=== PATIENT | female | born 1985 | race Caucasian/White ===

== ENCOUNTER 2016-03-25 12:16 | Day surgery (SDC) | payer OTHER ==
[2016-03-24 09:51] VITALS: BMI 43.0
[~2016-03-25] VITALS: Ht 152.4 cm; Wt 103.0 kg
[2016-03-25] VITALS (18 sets, daily range): BP systolic 84–126; BP diastolic 47–83; PULSE 74–98; RESP 14–25; Ht 152.4 cm; Wt 103.0 kg
[~2016-03-25 12:16] MED LIST: CEFAZOLIN 1 GM INJ ONE; GLYCOPYRROLATE 0.4 MG INJ ONE; IBUP800T25 PO; NEOSTIGMINE 3 MG/3 ML SYRINGE ONE; PRENAT PO; PROPOFOL 200 MG INJ ONE; ROCURONIUM 50 MG INJ ONE; SUCCINYLCHOLINE CHLORIDE 100 MG/5 ML SYG IV ONE
[2016-03-25] MEDS ORDERED: OMEP20CA16 PO (13:11)
[2016-03-25] MEDS ORDERED: NORG1TAB15 PO (13:13)
[2016-03-25] MEDS ORDERED: LACTATED RINGER'S 1,000 ML IV* SCH (13:30)
[2016-03-25] MEDS ORDERED: CEFAZOLIN 2 GM/50 ML (PMX) 50 ML IVPB SCH (13:30)
[2016-03-25 13:31] LABS: BASOPHIL # 0.2 10^3/ul (0.0-0.1); BASOPHILS % 2.4 % (0.0-2.0); EOSINOPHILS # 0.4 10^3/ul (0.0-0.5); EOSINOPHILS % 4.5 % (0.0-7.0); HEMATOCRIT 36.2 % (37.0-47.0); LYMPHOCYTES # 3.4 10^3/ul (0.8-2.9); LYMPHOCYTES % 35.2 % (15.0-51.0); MEAN CORPUSCULAR HEMOGLOBIN 29.2 pg (29.0-33.0); MEAN CORPUSCULAR HGB CONC 33.1 g/dl (32.0-37.0); MEAN CORPUSCULAR VOLUME 88.2 fl (82.0-101.0); MEAN PLATELET VOLUME 9.5 fl (7.4-10.4); MONOCYTE # 0.3 10^3/ul (0.3-0.9); MONOCYTES % 3.3 % (0.0-11.0); NEUTROPHIL # 5.3 10^3/ul (1.6-7.5); NEUTROPHILS % 54.6 % (39.0-77.0); PLATELET COUNT 217 10^3/UL (140-440); RED BLOOD COUNT 4.11 10^6/ul (4.20-5.40); RED CELL DISTRIBUTION WIDTH 13.4 % (11.5-14.5); UNCORRECTED WBC 9.7 10^3/ul (4.8-10.8); WHITE BLOOD COUNT 9.7 10^3/ul (4.8-10.8)
[2016-03-25 13:37] LABS: SUSPECT 1
[2016-03-25 13:38] LABS: CONDITION 1; LH ANALYZER COMMENTS 1
[2016-03-25 13:40] LABS: INR 0.91; PROTIME 12.2 Sec (12.2-14.2)
[2016-03-25 13:52] LABS: CALCIUM 9.9 mg/dl (8.4-10.2); CREATININE 0.62 mg/dl (0.44-1.00); POTASSIUM 3.9 mmol/L (3.5-5.1)
[2016-03-25 13:59] LABS: PARTIAL THROMBOPLASTIN TIME 23.9 Sec (25.0-35.0)
[2016-03-25 14:26] LABS: PLATELETS CLUMPS FEW
[2016-03-25] MEDS ORDERED: BUPIVACAINE 0.5% (SDV) 30 ML INJ ONE (17:05)
[2016-03-25] MEDS ORDERED: FENTAnyl 50 MCG/ML VIAL ONE (17:20)
[2016-03-25] MEDS ORDERED: DIPHENHYDRAMINE 50 MG INJ IV PRN (18:00)
[2016-03-25] MEDS ORDERED: HYDROmorphONE (0.2 MG/ML) 10ML SYG IV PRN ×3 (18:00)
[2016-03-25] MEDS ORDERED: ONDANSETRON 4 MG INJ IV PRN (18:00)
[2016-03-25] MEDS ORDERED: MEPERIDINE 25 MG INJ IV PRN (18:00)
[2016-03-25] MEDS ORDERED: METOCLOPRAMIDE 10 MG INJ IV PRN (18:00)
[2016-03-25] MEDS ORDERED: FENTAnyl 50 MCG/ML VIAL IV PRN (18:00)
[2016-03-25] MEDS ORDERED: HYDROCODONE/APAP (5/325) TAB PO PRN (19:00)
[2016-03-25] MEDS: FENTAnyl 50 MCG/ML VIAL IV PRN ×2 (19:09→19:42)
--- NOTE | 2016-03-26 18:45 | OPR ---
DATE OF OPERATION: 03/25/2016 SURGEON: Dr. Nima Miranda. ANESTHESIA: General. PREOPERATIVE DIAGNOSES: 1. Right hand mass at the thenar eminence. 2. Right hand mass at the base of the ring finger. 3. Right hand mass at the base of right middle finger. 4. Right wrist dorsal ganglion. 5. Right wrist mass at the flexor crease. POSTOPERATIVE DIAGNOSIS: 1. Right hand mass at the thenar eminence. 2. Right hand mass at the base of the ring finger. 3. Right hand mass at the base of right middle finger. 4. Right wrist dorsal ganglion. 5. Flexor tenosynovitis of the right wrist. PROCEDURE PERFORMED: 1. Excision of the deep mass from right thenar eminence measuring 5 mm x 5 mm. 2. 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 3. Excision of the deep mass, retinacular cyst from right middle finger at the level of the A2 pulle y measuring 8 mm x 8 mm. 4. Excision of right wrist dorsal ganglion. 5. Flexor tenosynovectomy at the carpal tunnel on the right wrist. 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 INDICATIONS FOR PROCEDURE: This is a 30-year-old female who was seen in clinic and diagnosed with m ultiple masses throughout the right hand. They are painful and she elected to proceed with operativ e intervention, understanding the risks and benefits. DESCRIPTION OF PROCEDURE: The patient was seen in the preoperative area and all further questions w ere answered. Again, she gave informed consent, understands the risks and benefits. She was taken to the operative suite and placed in supine position. She was placed under general anesthesia, and tourniquet placed in the right upper extremity. Ancef 2 grams was administered and right upper extr emity was prepped with ChloraPrep stick and draped in the usual sterile fashion. Esmarch bandage wa s used to exsanguinate the extremity and tourniquet inflated to 250 mmHg. Attention was first turne d to the dorsal wrist and a transverse incision measuring approximately 3 cm was utilized with sharp dissection carried down through skin and subcutaneous tissue. Scissor dissection revealed the exte nsor retinaculum and the sheath overlying the EPL tendon was incised and the EPL tendon was retracte d radially. The second and fourth dorsal compartments were retracted and the dorsal wrist capsule w as identified. A transverse ligament sparing type incision was made in the dorsal wrist capsule and the scapholunate interval was visualized. There was a dorsal ganglion present there and this was e xcised and debrided down to the level of the scapholunate ligament. Bovie electrocautery was used t o cauterize the scapholunate ligament. Wound was copiously irrigated and skin closed with 4-0 nylon . Attention was then turned to the volar aspect of the right wrist and a longitudinal incision was made over the area of mass that the patient identified. Sharp dissection was carried down through s kin and subcutaneous tissue. A deeper dissection revealed extensive tenosynovitis of the flexor ten dons and the incision was then extended past the wrist with a zigzag type incision. Each individual tendon was isolated along with the median nerve and the entirety of the tenosynovium which was hype rtrophic was excised. There was also significant adhesions between each of the tendons from the ten osynovitis. After excision, the tendon glided much more smoothly. Wound was copiously irrigated an d skin closed with 4-0 nylon. Attention was then turned to the right thenar eminence and a small ma ss was palpated. An incision was made through skin and subcutaneous tissue and scissor dissection w as used to identify the mass which was adherent to the undersurface of the deep dermis. Due to this , I decided to ellipse out the entirety of this mass and sent it for specimen. The wound was copiou sly irrigated and skin closed with 4-0 nylon. Attention was then turned to the right ring finger an d oblique type incision was utilized and sharp dissection carried down through skin, subcutaneous ti ssue. Scissor dissection spread over the flexor sheath and a retinacular cyst was identified. A po rtion of the A2 hakeem was excised and the cyst was removed. Attention was then turned to the right middle finger and an oblique incision centered over the mass was utilized proximal to the MB crease . Sharp dissection was carried down through skin and subcutaneous tissue. Scissor dissection was u sed to spread over the flexor sheath and the retinacular cyst was directly visualized. A portion of the A2 hakeem was excised and the cyst itself was also excised. Both wounds were copiously irrigat ed and skin closed with 4-0 nylon. Xeroform was placed over the wounds followed by sterile gauze, W ebril and a short arm splint. Tourniquet was deflated after 53 minutes and the patient was awakened from anesthesia. She was taken to the postoperative suite in stable condition, tolerated procedure well without complications. SPECIMEN: 1. Right wrist mass. 2. Right thenar mass. ESTIMATED BLOOD LOSS: 5 mL. COUNTS: Sponge, instrument and needle counts correct. TOURNIQUET TIME: 52 minutes. CONDITION ON DISCHARGE: Stable. Dictated By: NIMA HARRINGTON/CRISTOFER Conf#: [id number] DID#: [id number]
== END 2016-03-25 20:55 | disposition home or self-care (01) ==
LOC: SDS 12:16
PROVIDERS: ATTEND Orthopaedic Surgery Hand Surgery
DX: M67.441 Ganglion, right hand (principal); M67.431 Ganglion, right wrist; M65.88 Other synovitis and tenosynovitis, other site; E66.01 Morbid (severe) obesity due to excess calories; Z68.41 Body mass index [BMI] 40.0-44.9, adult
CPT/HCPCS: 25111; 25115; 26115; 26160; 80048; 84703; 85025; 85610; 85730; J0330; J0690; J2405; J2710; J3010; Z7512; Z7610; 88304; 88307

== ENCOUNTER 2016-10-02 02:21 | Outpatient (CLI) | payer OTHER ==
[~2016-10-02] VITALS: Ht 153.7 cm; Wt 106.4 kg
[~2016-10-02 02:21] MED LIST changes: -CEFAZOLIN 1 GM INJ ONE; -GLYCOPYRROLATE 0.4 MG INJ ONE; -IBUP800T25 PO; -NEOSTIGMINE 3 MG/3 ML SYRINGE ONE; +NORG1TAB15 PO; +OMEP20CA16 PO; -PRENAT PO; -PROPOFOL 200 MG INJ ONE; -ROCURONIUM 50 MG INJ ONE; -SUCCINYLCHOLINE CHLORIDE 100 MG/5 ML SYG IV ONE
[2016-10-02] MEDS ORDERED: NITR-58 PO (02:34)
[2016-10-02] MEDS ORDERED: PNV1TABL12 PO (02:34)
[2016-10-02] MEDS ORDERED: BISA-57 PO (02:34)
[2016-10-02 03:53] VITALS: Ht 153.7 cm; Wt 106.4 kg
[2016-10-02 03:54] VITALS: BP 132/72; PULSE 106; RESP 18
[2016-10-02] MEDS ORDERED: TERBUTALINE 1 MG/ML INJ SC ONE (04:00)
--- NOTE | 2016-10-02 04:42 | RADRPT ---
PROCEDURE: Obstetrical ultrasound, limited. CLINICAL INDICATION: Pelvic pain. TECHNIQUE: Multiple sonographic images of the pelvis were obtained using transabdominal technique . Images were obtained with cid scale and color Doppler. Endovaginal evaluation of the cervix was also performed. The images were reviewed on a PACS workstation. COMPARISON: No prior studies are available for comparison. FINDINGS: There is a single living intrauterine gestation with the fetus in a vertex presentation. hear t tones of 168 beats per minute are identified. The placenta is bilobed in location, grade 0. Ther e is normal amniotic fluid volume. The cervix is closed measuring 5.6 cm. There is no evidence of placenta previa or abruption. Measurements were made in order to determine age. The results are as follows: BPD =5.16 cm HC =19.14 cm AC =17.48 cm FL =3.69 cm. Estimated gestational age of approximately 21 weeks and 6 days. The estimated date of delivery is 02/06/2017. The EFW = 469 +/- 70 grams. Estimated weight percentage equals 30.3%. Maternal findings: There is mild free fluid within the posterior cul-de-sac. IMPRESSION: Single viable intrauterine gestation of approximately 21 weeks and 6 days, with an ultrasound REN of 02/06/2017. Mild maternal pelvic free fluid. .Kamlesh Evans MD, Date Time Electronically viewed and signed by .Kamlesh Evans MD, on 10/02/2016 04:41 .T/
[2016-10-02] MEDS: LACTATED RINGER'S 1,000 ML IV* SCH ×2 (04:50→06:52)
[2016-10-02 05:48] LABS: ADD UMIC YES; UR ASCORBIC ACID 20 mg/dL (NEGATIVE); UR BACTERIA FEW /HPF (NONE SEEN); UR BILIRUBIN (Dip) NEGATIVE (NEGATIVE); UR BLOOD (Dip) NEGATIVE (NEGATIVE); UR CLARITY CLOUDY (CLEAR); UR COLOR YELLOW (YELLOW); UR GLUCOSE (Dip) NEGATIVE (NEGATIVE); UR KETONES (Dip) NEGATIVE (NEGATIVE); UR LEUKOCYTE ESTERASE (Dip) NEGATIVE Leu/ul (NEGATIVE); UR MUCUS FEW /HPF (NONE SEEN); UR NITRITE (Dip) NEGATIVE (NEGATIVE); UR RBC 14 /HPF (0-5); UR SPECIFIC GRAVITY (Dip) 1.018 (1.003-1.030); UR SQUAMOUS EPITHELIAL CELL FEW /HPF (FEW); UR TOTAL PROTEIN (Dip) 1+ mg/dl (NEGATIVE); UR UROBILINOGEN (Dip) NEGATIVE (NEGATIVE)
[2016-10-02] MEDS ORDERED: MAGNESIUM HYDROXIDE 30ML CUP PO ONE (06:30)
[2016-10-02] MEDS ORDERED: PANTOPRAZOLE 40 MG INJ IV ONE (06:30)
--- NOTE | 2016-10-02 09:37 | PN ---
Triage Information Date/Time Weeks of Gestation Patient is 2 para 0 at 22 weeks and 3 days of gestation : 2 Para: 0 Diabetes: none Hypertention: none Additional information Patient presents with history of constipation and some nausea and vomiting at home Patient reports of taking Dulcolax suppository and Fleet enema which have not helped her with constipation Patient is also taking Macrobid for urinary tract infection She presents today afebrile and stable Objective Vital Signs Date Time Temp Pulse Resp B/P Pulse Ox O2 Delivery O2 Flow Rate FiO2 10/02/16 03:54 98.1 106 18 132/72 Room Air Intake and Output 10/01/16 10/01/16 10/02/16 15:00 23:00 07:00 Intake Total 1000 ml Balance 1000 ml Heart Rate: 140's Heart Rate Comments heart rate tracing is reactive Results/Medications Results 24 hrs Laboratory Tests Test 10/02/16 02:25 Urine Color YELLOW Urine Clarity CLOUDY A Urine pH 6.0 Urine Specific [place] 1.018 Urine Ketones NEGATIVE Urine Nitrite NEGATIVE Urine Bilirubin NEGATIVE Urine Urobilinogen NEGATIVE Urine Leukocyte Esterase NEGATIVE Urine Microscopic RBC 14 H Urine Microscopic WBC 4 Urine Squamous Epithelial Cells FEW Urine Bacteria FEW A Urine Mucus FEW A Urine Hemoglobin NEGATIVE Urine Glucose NEGATIVE Urine Total Protein 1+ H Medications Current Medications Lactated Ringer's (Lr) 1,000 ml @ 125 mls/hr Q8H IV* Last administered on 10/02t 06:52; Admin Dose 125 MLS/HR; Start 10/02/16 at 04:00 Imaging Results PROCEDURE: Obstetrical ultrasound, limited. CLINICAL INDICATION: Pelvic pain. TECHNIQUE: Multiple sonographic images of the pelvis were obtained using transabdominal technique. Images were obtained with cid scale and color Doppler. Endovaginal evaluation of the cervix was also performed. The images were reviewed on a PACS workstation. COMPARISON: No prior studies are available for comparison. FINDINGS: There is a single living intrauterine gestation with the fetus in a vertex presentation. heart tones of 168 beats per minute are identified. The placenta is bilobed in location, grade 0. There is normal amniotic fluid volume. The cervix is closed measuring 5.6 cm. There is no evidence of placenta previa or abruption. Measurements were made in order to determine age. The results are as follows: BPD = 5.16 cm HC = 19.14 cm AC = 17.48 cm FL = 3.69 cm. Estimated gestational age of approximately 21 weeks and 6 days. The estimated date of delivery is 02/06/2017. The EFW = 469 +/- 70 grams. Estimated weight percentage equals 30.3%. Maternal findings: There is mild free fluid within the posterior cul-de-sac. IMPRESSION: Single viable intrauterine gestation of approximately 21 weeks and 6 days, with an ultrasound REN of 02/06/2017. Mild maternal pelvic free fluid. .Kamlesh Evans MD, MD Date Time Electronically viewed and signed by .Kamlesh Evans MD, MD on 10/02/2016 04:41 .T/ CC: PAUL CEE MD Assessment/Plan Patient is a 22 weeks and 3 days of gestation with constipation CBC and CMP-within normal limits Patient was counseled to increase p.o. hydration, she was further counseled to take high-fiber foods Prescription for Colace was given Patient instructed to follow-up with her own [facility] in 2-3 days JIAN CISNEROS MD Oct 02, 2016 09:37
[2016-10-02 10:26] LABS: BASOPHILS % 0.3 % (0.0-2.0); EOSINOPHILS % 0.1 % (0.0-7.0); HEMATOCRIT 28.5 % (37.0-47.0); HEMOGLOBIN 9.4 g/dl (12.0-16.0); LYMPHOCYTES # 1.8 10^3/ul (0.8-2.9); LYMPHOCYTES % 14.9 % (15.0-51.0); MEAN CORPUSCULAR HEMOGLOBIN 30.3 pg (29.0-33.0); MEAN CORPUSCULAR VOLUME 91.9 fl (82.0-101.0); MEAN PLATELET VOLUME 10.9 fl (7.4-10.4); MONOCYTE # 0.4 10^3/ul (0.3-0.9); NEUTROPHIL # 9.6 10^3/ul (1.6-7.5); NEUTROPHILS % 81.2 % (39.0-77.0); PLATELET COUNT 279 10^3/UL (140-415); RED CELL DISTRIBUTION WIDTH 13.7 % (11.5-14.5); WHITE BLOOD COUNT 11.8 10^3/ul (4.8-10.8)
[2016-10-02 10:43] LABS: ALBUMIN 3.5 g/dl (3.3-4.9); ALBUMIN/GLOBULIN RATIO 1.2; BILIRUBIN,INDIRECT 0.2 mg/dl (0-1.1); BILIRUBIN,TOTAL 0.2 mg/dl (0.2-1.3); CALCIUM 8.8 mg/dl (8.4-10.2); CREATININE 0.5 mg/dl (0.44-1.00); POTASSIUM 3.7 mmol/L (3.5-5.1); TOTAL PROTEIN 6.4 g/dl (6.1-8.1)
--- NOTE | 2016-10-02 12:13 | TRIAGE ---
OB Triage Datetime Report Generated by CPN: 10/02/2016 12:13 Datetime: 10/02/2016 11:50 Labor Evaluation Frequency: NONE Monitor Mode: External Pattern: Normal: <= 5 Contractions in 10 Minutes Resting Tone [place]: Relaxed Datetime: 10/02/2016 11:00 Labor Evaluation Frequency: NONE Monitor Mode: External Pattern: Normal: <= 5 Contractions in 10 Minutes Resting Tone [place]: Relaxed Datetime: 10/02/2016 10:00 Labor Evaluation Frequency: NONE Monitor Mode: External Pattern: Normal: <= 5 Contractions in 10 Minutes Resting Tone [place]: Relaxed Datetime: 10/02/2016 09:00 Labor Evaluation Frequency: NONE Monitor Mode: External Pattern: Normal: <= 5 Contractions in 10 Minutes Resting Tone [place]: Relaxed Datetime: 10/02/2016 08:41 Pain Assessment Pain Scale: 5 Pain Presence: Constant Pain Type: Burning Pain Location: Abdomen Datetime: 10/02/2016 08:01 Maternal Assessment Level of Consciousness: Fully Conscious Headache: Denies Blurred Vision: No Nausea/Vomiting: Hx of Nausea/Vomiting RUQ Epigastric Pain: Denies Facial Edema: 1+ Labor Evaluation Frequency: NONE Monitor Mode: External Pattern: Normal: <= 5 Contractions in 10 Minutes Resting Tone [place]: Relaxed Datetime: 10/02/2016 07:55 Monitor Mode: External Datetime: 10/02/2016 07:54 Monitor Mode: External Datetime: 10/02/2016 07:41 Pain Assessment Pain Scale: 5 Pain Presence: Constant Pain Type: Burning; Ache Pain Location: Abdomen Pain Assessment Comments: PT REPORTS PAIN HAS DECREASED AFTER IV, AND ADMINISTRATION OF PROTONIX A ND MOM Datetime: 10/02/2016 07:00 Labor Evaluation Frequency: None Pattern: Normal: <= 5 Contractions in 10 Minutes Resting Tone [place]: Relaxed Datetime: 10/02/2016 06:00 Labor Evaluation Frequency: None Pattern: Normal: <= 5 Contractions in 10 Minutes Resting Tone [place]: Relaxed Datetime: 10/02/2016 05:00 Labor Evaluation Frequency: None Pattern: Normal: <= 5 Contractions in 10 Minutes Datetime: 10/02/2016 04:44 Nausea/Vomiting: Present Datetime: 10/02/2016 04:41 Monitor Mode: External Datetime: 10/02/2016 04:00 Labor Evaluation Frequency: None Pattern: Normal: <= 5 Contractions in 10 Minutes Resting Tone [place]: Relaxed Datetime: 10/02/2016 02:49 Assessment Type: Triage Maternal Assessment Level of Consciousness: Fully Conscious DTR's/Clonus: DTRs 2+; No Clonus Headache: Denies Blurred Vision: No Respiratory Effort: Unlabored; Regular Rhythm; Equal Expansion Breath Sounds, Left: Clear and Equal Breath Sounds, Right: Clear and Equal Nausea/Vomiting: Denies RUQ Epigastric Pain: Denies Lower Extremities Edema: Bilateral Lower Extremities Degree: 1+ Upper Extremities Edema: None Degree: None Facial Edema: None Fall Risk Assessment History of Falling: (0) No Secondary Diagnosis: (0) No Ambulatory Aid: (0) Bedrest/Nurse Assist IV Therapy: (0) No Gait: (0) Normal/Bedrest/Immobile Mental Status: (0) Oriented to Own Ability Fall Score: 0 Fall Risk Score Definition: No Risk: No action required Pain Presence: Intermittent Pain Type: Burning; Sharp Pain Location: Abdomen Pain Relief Measures: Comfort Measures Pain Assessment Comments: Epigastric Datetime: 10/02/2016 02:45 Heart Rate FHR Baseline Rate: 165 Monitor Mode: Doppler Comments: FHT Datetime: 10/02/2016 02:35 Time of Arrival: 10/02/2016 02:15 EGA: 22.2 Arrived By: Wheelchair Arrived From: Home (Annotations: Data stored by CPN on behalf of user) Chief Complaint: Severe epigastric and abdominal pain with N/V Movement: Present Contractions: Denies/Absent Rupture of Membranes: Denies Vaginal Bleeding: None Vaginal Discharge: Denies Recent Sexual Intercouse: Denies Abdominal Trauma: Not Applicable Patient Complaints: Nausea; Vomiting; Epigastric Pain; Other Time Provider Notified: 10/02/2016 03:35 Provider Notified: Dr Wei Initial Plan: Doppler FHT, toco, UA, EFW, CL, IV hydration.
== END 2016-10-02 12:09 | disposition home or self-care (01) ==
LOC: L-D 02:21 → OBT 02:21
PROVIDERS: ATTEND Obstetrics & Gynecology
DX: O26.892 Other specified pregnancy related conditions, second trimester (principal); K59.00 Constipation, unspecified; O21.0 Mild hyperemesis gravidarum; O23.42 Unspecified infection of urinary tract in pregnancy, second trimester; Z3A.22 22 weeks gestation of pregnancy
CPT/HCPCS: 76815; 76817; 80053; 81001; 85025; C9113; J7120; Z7610; J3105

== ENCOUNTER 2016-12-04 01:21 | Outpatient (CLI) | payer OTHER ==
[~2016-12-04] VITALS: Ht 154.9 cm; Wt 109.2 kg
[~2016-12-04 01:21] MED LIST changes: +BISA-57 PO; +NITR-58 PO; +PNV1TABL12 PO
[2016-12-04 01:56] VITALS: Ht 154.9 cm; Wt 109.2 kg
[2016-12-04 01:58] VITALS: BP 119/65; PULSE 102; RESP 18
[2016-12-04 03:45] LABS: ADD UMIC YES; UR AMORPHOUS CRYSTAL FEW /HPF (NONE SEEN); UR ASCORBIC ACID 40 mg/dL (NEGATIVE); UR BILIRUBIN (Dip) NEGATIVE (NEGATIVE); UR BLOOD (Dip) NEGATIVE (NEGATIVE); UR CLARITY TURBID (CLEAR); UR COLOR YELLOW (YELLOW); UR GLUCOSE (Dip) NEGATIVE (NEGATIVE); UR KETONES (Dip) NEGATIVE (NEGATIVE); UR LEUKOCYTE ESTERASE (Dip) NEGATIVE Leu/ul (NEGATIVE); UR MUCUS MANY /HPF (NONE SEEN); UR NITRITE (Dip) NEGATIVE (NEGATIVE); UR RBC 1 /HPF (0-5); UR SPECIFIC GRAVITY (Dip) 1.019 (1.003-1.030); UR TOTAL PROTEIN (Dip) NEGATIVE (NEGATIVE); UR UROBILINOGEN (Dip) NEGATIVE (NEGATIVE)
--- NOTE | 2016-12-04 04:38 | RADRPT ---
PROCEDURE: Biophysical profile. CLINICAL INDICATION: Pelvic pain. TECHNIQUE: Multiple sonographic images of the pelvis were obtained with transabdominal technique. Endovaginal evaluation of the cervix was also performed. COMPARISON: 10/02/2016. FINDINGS: There is a single living intrauterine gestation with the fetus in a breech position with the head to the maternal right. The placenta is bilobed in location, grade 1. heart tones of 137 beats p er minute are identified. There is normal amniotic fluid volume with an DANIKA of 22.1 cm. The cervix is closed measuring 3.4 cm. breathing movements = 2 Gross body movements = 2 tone = 2 Qualitative AFV = 2 IMPRESSION: Biophysical profile 8 out of 8. .Kamlesh Evans MD, Date Time Electronically viewed and signed by .Kamlesh Evans MD, MD on 12/04/2016 04:37 .T/
--- NOTE | 2016-12-04 05:09 | PN ---
Triage Information Date/Time Reason for visit: Weeks of Gestation 31w 2d /Para Diabetes: gestational Diabetes management: diet controlled Additional information h/o uterine septum Objective Vital Signs Date Time Temp Pulse Resp B/P Pulse Ox O2 Delivery O2 Flow Rate FiO2 12/04/16 01:58 98.1 102 18 119/65 97 Room Air Heart Rate Comments reactive Contractions: None Results/Medications Results 24 hrs Laboratory Tests Test 12/04/16 02:57 Urine Color YELLOW Urine Clarity TURBID A Urine pH 7.0 Urine Specific [place] 1.019 Urine Ketones NEGATIVE Urine Nitrite NEGATIVE Urine Bilirubin NEGATIVE Urine Urobilinogen NEGATIVE Urine Leukocyte Esterase NEGATIVE Urine Microscopic RBC 1 Urine Microscopic WBC 0 Urine Amorphous Crystals FEW A Urine Mucus MANY A Urine Hemoglobin NEGATIVE Urine Glucose NEGATIVE Urine Total Protein NEGATIVE Membranes Rupture NEGATIVE Imaging Results BPP 8/8, DANIKA 22.1, CL 3.4cm Disposition: Discharge NATALIE GAITAN Dec 04, 2016 05:09
--- NOTE | 2016-12-04 05:58 | TRIAGE ---
OB Triage Datetime Report Generated by CPN: 12/04/2016 05:57 Datetime: 12/04/2016 04:49 Stage of : OB Triage Labor Evaluation Frequency: 0 Monitor Mode: External Resting Tone [place]: Relaxed Datetime: 12/04/2016 04:28 Stage of : OB Triage Labor Evaluation Frequency: 0 Monitor Mode: External Resting Tone [place]: Relaxed Heart Rate FHR Baseline Rate: 120 Monitor Mode: External US Variability: Moderate 6-25 bpm Accelerations: 15X15 Decelerations: None Category: Category I Datetime: 12/04/2016 03:38 Stage of : OB Triage Labor Evaluation Frequency: 0 Monitor Mode: External Resting Tone [place]: Relaxed Heart Rate FHR Baseline Rate: 120 Monitor Mode: External US Variability: Moderate 6-25 bpm Accelerations: 15X15 Decelerations: None Category: Category I Datetime: 12/04/2016 03:37 Stage of : OB Triage Datetime: 12/04/2016 03:12 Monitor Mode: External US Datetime: 12/04/2016 03:03 Monitor Mode: External Datetime: 12/04/2016 03:00 Monitor Mode: External US Datetime: 12/04/2016 02:50 Stage of : OB Triage Datetime: 12/04/2016 02:48 Stage of : OB Triage Datetime: 12/04/2016 02:28 Stage of : OB Triage Datetime: 12/04/2016 02:26 Stage of : OB Triage Datetime: 12/04/2016 02:04 Stage of : OB Triage Datetime: 12/04/2016 02:01 Stage of : OB Triage Labor Evaluation Frequency: X6 Monitor Mode: External Duration (sec)2399: 40-80 Quality: Mild Resting Tone [place]: Relaxed Heart Rate FHR Baseline Rate: 125 Monitor Mode: External US Variability: Moderate 6-25 bpm Accelerations: 15X15 Decelerations: None Category: Category I Datetime: 12/04/2016 01:43 Assessment Type: Triage Maternal Assessment Level of Consciousness: Fully Conscious DTR's/Clonus: DTRs 2+; No Clonus Headache: Denies Blurred Vision: No Respiratory Effort: Unlabored Breath Sounds, Left: Clear and Equal Breath Sounds, Right: Clear and Equal Nausea/Vomiting: Hx of Nausea/Vomiting RUQ Epigastric Pain: Denies Lower Extremities Edema: Bilateral Lower Extremities Degree: 1+ Upper Extremities Edema: None Degree: None Facial Edema: None Fall Risk Assessment History of Falling: (0) No Secondary Diagnosis: (15) Yes (Annotations: GDM DIET CONTROLLED) Ambulatory Aid: (0) Bedrest/Nurse Assist IV Therapy: (0) No Gait: (0) Normal/Bedrest/Immobile Mental Status: (0) Oriented to Own Ability Fall Score: 15 Fall Risk Score Definition: No Risk: No action required Datetime: 12/04/2016 01:39 Time of Arrival: 12/04/2016 01:12 EGA: 31.2 Arrived By: Wheelchair Arrived From: Home Chief Complaint: low abd pressure, leaking, dysuria, Movement: Present Contractions: Denies/Absent Rupture of Membranes: Unsure Vaginal Bleeding: None Vaginal Discharge: Denies Recent Sexual Intercouse: Yes Abdominal Trauma: Not Applicable Initial Plan: VS, EFM, UA, ROM+, CL, BPP/DANIKA Datetime: 12/04/2016 01:28 Monitor Mode: External Contraction Comments: APPLIED Monitor Mode: External US Comments: APPLIED Datetime: 10/02/2016 02:49 Fall Score: 0 Fall Risk Score Definition: No Risk: No action required Datetime: 10/02/2016 02:35 EGA: 22.2
== END 2016-12-04 05:05 | disposition home or self-care (01) ==
LOC: OBT 01:21 → L-D 01:22 → OBT 05:05
PROVIDERS: ATTEND Obstetrics & Gynecology
DX: O24.410 Gestational diabetes mellitus in pregnancy, diet controlled (principal); Z3A.31 31 weeks gestation of pregnancy
CPT/HCPCS: 76817; 76818; 81001; 84112; Z7500; G0463

== ENCOUNTER 2016-12-21 12:02 | Outpatient (CLI) | payer OTHER ==
[~2016-12-21] VITALS: Ht 154.9 cm; Wt 108.7 kg
--- NOTE | 2016-12-21 12:32 | RADRPT ---
PROCEDURE: US OB biophysical profile. CLINICAL INDICATION: decreased movements, GDM TECHNIQUE: Multiple sonographic images of the pelvis were obtained. The images were reviewed on a PACS workstation. COMPARISON: US PELVIS 12/04/2016 FINDINGS: There is a single viable intrauterine gestation. Cardiac activity is present with 140 beats per min [place]. There is a breech presentation. The placenta is bilobed, anterior/posterior. There is no evidence of placental abruption. There is a normal amount of amniotic fluid with an DANIKA = 16.7 cm. Biophysical profile: movement 2/2 tone 2/2. breathing 2/2 DANIKA 2/2 Total 10/12 RPTAT: AA . IMPRESSION: Normal biophysical profile. . .Raheem Friedman MD, Date Time Electronically viewed and signed by .Raheem Friedman MD, MD on 12/21/2016 12:31 .S/
[2016-12-21 13:06] VITALS: Ht 154.9 cm; Wt 108.7 kg
--- NOTE | 2016-12-21 15:35 | PN ---
Triage Information Date/Time Reason for visit: NST BPP Weeks of Gestation 33+ /Para 3/0 Diabetes: gestational Diabetes management: diet controlled Hypertention: none Objective Heart Rate: 140's Contractions: None Results/Medications Results 24 hrs Laboratory Tests Test 12/21/16 14:20 Membranes Rupture NEGATIVE Disposition: Discharge Assessment/Plan Precautions discussed.Follow up with provider BAMBI HUNT M.D. Dec 21, 2016 15:35
== END 2016-12-21 16:10 | disposition home or self-care (01) ==
LOC: L-D 12:02 → OBT 12:02
PROVIDERS: ATTEND Obstetrics & Gynecology
DX: O24.419 Gestational diabetes mellitus in pregnancy, unspecified control (principal); Z3A.33 33 weeks gestation of pregnancy
CPT/HCPCS: 76818; 84112; Z7500; G0463

== ENCOUNTER 2016-12-25 23:22 | Outpatient (CLI) | payer OTHER ==
[~2016-12-25] VITALS: Ht 154.9 cm; Wt 108.0 kg
[2016-12-26 00:27] VITALS: Ht 154.9 cm; Wt 108.0 kg
--- NOTE | 2016-12-26 01:57 | RADRPT ---
PROCEDURE: OB ultrasound for biophysical profile CLINICAL INDICATION: Pain. TECHNIQUE: Multiple sonographic images of the gravid uterus performed. The images were reviewed on a PACS workstation. COMPARISON: 12/21/2016 FINDINGS: A single live intrauterine is identified with heart rate of 150 bpm. Fet us is in a cephalic presentation. Placenta is bilobed with both anterior and posterior components. . Biophysical profile: breathing movement = 2/2 tone = 2/2 motion = 2/2 DANIKA = 2/2 DANIKA = 16.88 cm. Cervix is closed measuring 3.6 cm length. IMPRESSION: 1. Single live intrauterine gestation. 2. Biophysical profile = 8/8. 3. DANIKA = 16.88 cm. RPTAT: HMVK .Khurram Miranda MD, MD Date Time Electronically viewed and signed by .Khurram Miranda MD, MD on 12/26/2016 01:57 .K/
[2016-12-26 02:13] LABS: ADD UMIC YES; UR ASCORBIC ACID NEGATIVE (NEGATIVE); UR BACTERIA FEW /HPF (NONE SEEN); UR BILIRUBIN (Dip) NEGATIVE (NEGATIVE); UR BLOOD (Dip) NEGATIVE (NEGATIVE); UR BUDDING YEAST FEW /HPF (NONE SEEN); UR CLARITY CLOUDY (CLEAR); UR COLOR YELLOW (YELLOW); UR GLUCOSE (Dip) NEGATIVE (NEGATIVE); UR KETONES (Dip) NEGATIVE (NEGATIVE); UR LEUKOCYTE ESTERASE (Dip) NEGATIVE Leu/ul (NEGATIVE); UR NITRITE (Dip) NEGATIVE (NEGATIVE); UR RBC 1 /HPF (0-5); UR SPECIFIC GRAVITY (Dip) 1.016 (1.003-1.030); UR SQUAMOUS EPITHELIAL CELL FEW /HPF (FEW); UR TOTAL PROTEIN (Dip) NEGATIVE (NEGATIVE); UR UROBILINOGEN (Dip) NEGATIVE (NEGATIVE)
[2016-12-26] MEDS ORDERED: HYDROCODONE/APAP (5/325) TAB PO ONE (02:32)
[2016-12-26] MEDS ORDERED: CALC600T5 PO (02:55)
[2016-12-26] MEDS ORDERED: PYRI50TA80 PO (02:55)
[2016-12-26] MEDS ORDERED: ACET500C5 PO (02:55)
[2016-12-26] MEDS ORDERED: ASC500 PO (02:55)
[2016-12-26] MEDS ORDERED: PREN1TAB79 PO (02:55)
[2016-12-26] MEDS ORDERED: IRON1TAB78 PO (02:55)
[2016-12-26] MEDS ORDERED: FOLI-49 PO (02:55)
--- NOTE | 2016-12-26 06:30 | PN ---
Triage Information Date/Time December 26, 2016. Reason for visit: Abd/pelvic pain Weeks of Gestation 33w 4d /Para 3/0 Diabetes: none Hypertention: none Additional information Pt has had right lower quadrant pain for the last month. Tonight she came in as she was feeling pressure and feeling like she wanted to push to have the baby. She had a BM after arrival here but it did not relieve the feeling. That pressure has now gone. PMHx: none. PSHx: myomectomy.HSC. Hand surgery. All: lidocaine. Vicks Formula 44. Objective BP 124/74 T=98.5 Heart Rate: 130's Heart Rate Comments Accels to 160 bpm. No decels. Contractions: None Results/Medications Results 24 hrs Laboratory Tests Test 12/26/16 00:35 Urine Color YELLOW Urine Clarity CLOUDY A Urine pH 7.0 Urine Specific [place] 1.016 Urine Ketones NEGATIVE Urine Nitrite NEGATIVE Urine Bilirubin NEGATIVE Urine Urobilinogen NEGATIVE Urine Leukocyte Esterase NEGATIVE Urine Microscopic RBC 1 Urine Microscopic WBC 3 Urine Squamous Epithelial Cells FEW Urine Calcium Oxalate Crystals MANY A Urine Bacteria FEW A Urine Yeast (Budding) FEW A Urine Hemoglobin NEGATIVE Urine Glucose NEGATIVE Urine Total Protein NEGATIVE Medications [place] 5/325 x 1. Imaging Results BPP 8/8. DANIKA 16.88. Cervical length 3.6 cm, closed. VTX. Anterior/posterior bilobed placenta. Disposition: Discharge Assessment/Plan A: IUP at 33w 4d. Right lower quadrant pain, unclear etiology. Pelvic pressure, resolved. P: D/C home. After one [place] the pressure resolved and the pt felt better in that regard. Pt scheduled for C/S 02/03 due to the h/o myomectomy. Keep appt with Dr Coburn 12/28. PAUL CEE MD Dec 26, 2016 06:30
--- NOTE | 2016-12-26 06:37 | TRIAGE ---
OB Triage Datetime Report Generated by CPN: 12/26/2016 06:37 Datetime: 12/26/2016 06:17 Stage of : OB Triage Datetime: 12/26/2016 06:15 Stage of : OB Triage Labor Evaluation Frequency: NONE Monitor Mode: External Duration (sec)2399: NONE Resting Tone Dodson: Relaxed Heart Rate FHR Baseline Rate: 135 Monitor Mode: External US FHR Baseline Changes: No Baseline Change Variability: Moderate 6-25 bpm Accelerations: 15X15 Decelerations: None Category: Category I Datetime: 12/26/2016 05:30 Stage of : OB Triage Labor Evaluation Frequency: NONE Monitor Mode: External Duration (sec)2399: NONE Resting Tone Dodson: Relaxed Heart Rate FHR Baseline Rate: 135 Monitor Mode: External US FHR Baseline Changes: No Baseline Change Variability: Moderate 6-25 bpm Accelerations: 15X15 Decelerations: Variable Category: Category II Datetime: 12/26/2016 05:03 Pain Assessment Pain Scale: 3 Pain Presence: Constant Pain Location: Right Groin Pain Assessment Comments: PT STATES THAT THE PAIN ON HER BACK AND ABDOMEN WERE GONE BUT STILL FEEL ING 3/10 SHARP PAIN ON HER RIGHT GROIN Datetime: 12/26/2016 04:30 Stage of : OB Triage Labor Evaluation Frequency: NONE Monitor Mode: External Duration (sec)2399: NONE Resting Tone Dodson: Relaxed Heart Rate FHR Baseline Rate: 135 Monitor Mode: External US FHR Baseline Changes: No Baseline Change Variability: Moderate 6-25 bpm Accelerations: 15X15 Decelerations: None Category: Category I Datetime: 12/26/2016 03:50 Pain Assessment Pain Scale: 5 Pain Presence: Constant Pain Location: Abdomen; Back; Right Groin Pain Assessment Comments: PT STATES FEELING SLIGHT RELIEF FROM PAIN. Datetime: 12/26/2016 03:30 Stage of : OB Triage Labor Evaluation Frequency: NONE Monitor Mode: External Duration (sec)2399: NONE Resting Tone Dodson: Relaxed Contraction Comments: SOME IRRITABILITY NOTED Heart Rate FHR Baseline Rate: 135 Monitor Mode: External US FHR Baseline Changes: No Baseline Change Variability: Moderate 6-25 bpm Accelerations: 15X15 Decelerations: None Category: Category I Datetime: 12/26/2016 02:56 Stage of : OB Triage Pain Assessment Pain Scale: 9 Pain Presence: Constant Pain Type: Sharp Pain Location: Right Groin Pain Relief Measures: Pain Medication Given; Comfort Measures Datetime: 12/26/2016 02:40 Vaginal Exam Membrane Status: Intact Datetime: 12/26/2016 02:37 Stage of : OB Triage Labor Evaluation Frequency: IRRITABILITY Monitor Mode: External Pattern: Normal: <= 5 Contractions in 10 Minutes Resting Tone Dodson: Relaxed Heart Rate FHR Baseline Rate: 135 Monitor Mode: External US FHR Baseline Changes: No Baseline Change Variability: Moderate 6-25 bpm Accelerations: 15X15 Decelerations: None Category: Category I Datetime: 12/26/2016 02:30 Stage of : OB Triage Datetime: 12/26/2016 02:22 Monitor Mode: External US Datetime: 12/26/2016 02:01 Monitor Mode: External US Datetime: 12/26/2016 01:39 Monitor Mode: External US Datetime: 12/26/2016 01:05 Stage of : OB Triage Labor Evaluation Frequency: OCC Monitor Mode: External Duration (sec)2399: 40-50 Quality: Mild Pattern: Normal: <= 5 Contractions in 10 Minutes Resting Tone Dodson: Relaxed Contraction Comments: IRRITABILITY NOTED Heart Rate FHR Baseline Rate: 135 Monitor Mode: External US FHR Baseline Changes: No Baseline Change Variability: Moderate 6-25 bpm Accelerations: 15X15 Decelerations: None Category: Category II Datetime: 12/26/2016 01:00 Stage of : OB Triage Datetime: 12/26/2016 00:27 Stage of : OB Triage Datetime: 12/26/2016 00:01 Stage of : OB Triage Labor Evaluation Frequency: x2 Monitor Mode: External Duration (sec)2399: 30-40 Quality: Mild Pattern: Normal: <= 5 Contractions in 10 Minutes Resting Tone Dodson: Relaxed Heart Rate FHR Baseline Rate: 145 Monitor Mode: External US Decelerations: None Category: Category I Datetime: 12/26/2016 00:00 Stage of : OB Triage Time of Arrival: 12/25/2016 23:20 EGA: 33.2 Arrived By: Wheelchair Arrived From: Home Chief Complaint: PT STATES SHE HAS THE "URGE TO PUSH BABY OUT", LEFT LOWER PELVIC PAIN, BACK PAIN Movement: Present Contractions: Irregular Contractions: X2 Rupture of Membranes: Denies Vaginal Bleeding: None Vaginal Discharge: Denies Recent Sexual Intercouse: Denies Abdominal Trauma: Not Applicable Patient Complaints: Back Pain; Other Time Provider Notified: 12/26/2016 00:27 Provider Notified: DR. CEE Initial Plan: EFM, CALL OB, CVL, BPP, URINALYSIS Maternal Assessment Level of Consciousness: Fully Conscious DTR's/Clonus: DTRs 2+; No Clonus Headache: Denies Blurred Vision: No Respiratory Effort: Unlabored; Regular Rhythm; Equal Expansion Breath Sounds, Left: Clear and Equal Breath Sounds, Right: Clear and Equal Nausea/Vomiting: Denies RUQ Epigastric Pain: Denies Lower Extremities Edema: Bilateral Lower Extremities Upper Extremities Edema: None Degree: None Facial Edema: None Temperature Route: Oral Fall Risk Assessment History of Falling: (0) No Secondary Diagnosis: (0) No Ambulatory Aid: (0) Bedrest/Nurse Assist IV Therapy: (0) No Gait: (0) Normal/Bedrest/Immobile Mental Status: (0) Oriented to Own Ability Fall Score: 0 Fall Risk Score Definition: No Risk: No action required Pain Assessment Pain Scale: 8 Pain Presence: Constant Pain Type: Sharp; Pressure; Ache Pain Location: Abdomen; Back (Annotations: LEFT LOWER PELVIS) Pain Relief Measures: Comfort Measures Datetime: 12/25/2016 23:33 Contraction Comments: APPLIED Comments: APPLIED Datetime: 12/21/2016 15:42 EGA: 32.5 Time Provider Notified: 12/20/2016 13:55 Provider Notified: DR. ABUSLEME Datetime: 12/21/2016 12:37 Fall Score: 0 Fall Risk Score Definition: No Risk: No action required Datetime: 12/04/2016 05:05 EGA: 32.5 Datetime: 12/04/2016 01:43 Fall Score: 15 Fall Risk Score Definition: No Risk: No action required Datetime: 12/04/2016 01:39 EGA: 30.2 Datetime: 10/02/2016 02:49 Fall Score: 0 Fall Risk Score Definition: No Risk: No action required Datetime: 10/02/2016 02:35 EGA: 21.2
== END 2016-12-26 06:30 | disposition home or self-care (01) ==
LOC: OBT 23:22 → L-D 23:25 → OBT 12-26 06:30
PROVIDERS: ATTEND Obstetrics & Gynecology
DX: O26.893 Other specified pregnancy related conditions, third trimester (principal); R10.31 Right lower quadrant pain; R10.2 Pelvic and perineal pain; Z3A.33 33 weeks gestation of pregnancy
CPT/HCPCS: 76817; 76818; 81001; Z7500; Z7610; G0463

== ENCOUNTER 2017-01-15 01:51 | Outpatient (CLI) | payer OTHER ==
[~2017-01-15] VITALS: Ht 154.9 cm; Wt 108.8 kg
[~2017-01-15 01:51] MED LIST changes: +ACET500C5 PO; +ASC500 PO; -BISA-57 PO; +CALC600T5 PO; +FOLI-49 PO; +IRON1TAB78 PO; -NITR-58 PO; -NORG1TAB15 PO; -OMEP20CA16 PO; -PNV1TABL12 PO; +PREN1TAB79 PO; +PYRI50TA80 PO
[2017-01-15 02:47] VITALS: Ht 154.9 cm; Wt 108.8 kg
--- NOTE | 2017-01-15 03:13 | RADRPT ---
PROCEDURE: ULTRASOUND BIOPHYSICAL PROFILE CLINICAL INDICATION: 31-year-old female with decreased movement for viability. TECHNIQUE: Multiple sonographic images were obtained in order to perform a biophysical profile The images were reviewed on a PACS workstation. COMPARISON: Ultrasound biophysical profile December 26, 2016. FINDINGS: There is a single viable intrauterine gestation. There is a vertex presentation. Cardiac activity i s present at 166 beats per minute. The placenta is bilobed with anterior posterior component. The r esults of the biophysical profile are as follows: breathing movement = 2/2 Gross body movement = 2/2 tone = 2/2 Qualitative amniotic fluid volume = 2/2 Amniotic fluid index equals 13.6 cm. This yields a biophysical profile score of 8/8. IMPRESSION: Biophysical profile score is 8/8. .Sumanth Pinzon MD, Date Time Electronically viewed and signed by .Sumanth Pinzon MD, on 01/15/2017 03:12 .M/
--- NOTE | 2017-01-15 04:04 | TRIAGE ---
OB Triage Datetime Report Generated by CPN: 01/15/2017 04:04 Datetime: 01/15/2017 03:57 Stage of : OB Triage Datetime: 01/15/2017 03:52 Stage of : OB Triage Datetime: 01/15/2017 02:35 Time of Arrival: 01/15/2017 01:44 EGA: 36.2 Arrived By: Wheelchair Arrived From: Home Chief Complaint: DFM AND LOWER ABD PRESSURE Movement: Present Contractions: Occasional Rupture of Membranes: Denies Vaginal Bleeding: None Vaginal Discharge: Denies Recent Sexual Intercouse: Denies Abdominal Trauma: Not Applicable Patient Complaints: Other Initial Plan: EFM, CALL OB Datetime: 01/15/2017 02:20 Labor Evaluation Frequency: X3 Monitor Mode: External Pattern: Normal: <= 5 Contractions in 10 Minutes Heart Rate FHR Baseline Rate: 135 Monitor Mode: External US FHR Baseline Changes: No Baseline Change Variability: Moderate 6-25 bpm Accelerations: 15X15 Decelerations: None Datetime: 01/15/2017 02:00 Stage of : OB Triage Assessment Type: Triage Maternal Assessment Level of Consciousness: Fully Conscious Headache: Denies Blurred Vision: No Respiratory Effort: Unlabored; Regular Rhythm; Equal Expansion Nausea/Vomiting: Denies RUQ Epigastric Pain: Denies Facial Edema: None Fall Risk Assessment History of Falling: (0) No Secondary Diagnosis: (0) No Ambulatory Aid: (0) Bedrest/Nurse Assist IV Therapy: (0) No Gait: (0) Normal/Bedrest/Immobile Mental Status: (0) Oriented to Own Ability Fall Score: 0 Fall Risk Score Definition: No Risk: No action required Datetime: 12/26/2016 00:00 EGA: 33.2 Fall Score: 0 Fall Risk Score Definition: No Risk: No action required Datetime: 12/21/2016 15:42 EGA: 32.5 Datetime: 12/21/2016 12:37 Fall Score: 0 Fall Risk Score Definition: No Risk: No action required Datetime: 12/04/2016 05:05 EGA: 32.5 Datetime: 12/04/2016 01:43 Fall Score: 15 Fall Risk Score Definition: No Risk: No action required Datetime: 12/04/2016 01:39 EGA: 30.2 Datetime: 10/02/2016 02:49 Fall Score: 0 Fall Risk Score Definition: No Risk: No action required Datetime: 10/02/2016 02:35 EGA: 21.2
--- NOTE | 2017-01-15 18:18 | QN ---
Documentation Comment g3po iup 36 weelks dfm vss exam wnl us wnl a/p iup 36 weeks DFM resolved dc home KATERINA INGRAM MD Jan 15, 2017 18:18
== END 2017-01-15 04:03 | disposition home or self-care (01) ==
LOC: L-D 01:51 → OBT 01:51
PROVIDERS: ATTEND Obstetrics & Gynecology
DX: O36.8130 Decreased fetal movements, third trimester, not applicable or unspecified (principal); Z3A.36 36 weeks gestation of pregnancy
CPT/HCPCS: 76818; 81001; 81003; Z7500; G0463

== ENCOUNTER 2017-01-30 02:28 | Inpatient (IN) | payer OTHER ==
--- NOTE | 2017-01-29 23:46 | PREOPHP ---
DATE OF ADMISSION: 02/10/2017 HISTORY OF PRESENT ILLNESS: This is a 31-year-old female, 2, para 1, abortions 0. This pat ient has a history of having a previous myomectomy and she is due 02/2013 by ultrasound, 02/10 by pe rinatology, 02/08 by her dates, last period was 05/04/2016. We came up with a primary sect ion for 02/03/2017 due to history of myomectomy and also a history of uterine septum that was close to the fundus that was also treated. The patient had early evaluation of her for which e dates were pretty close February 08 or , so five days before her due date. We will be going her p rimary section. The patient had a gestational diabetes, diet controlled. She was prediabe tic in the first trimester and then she became with gestational diabetes with a large fetus, and she was also having a history of having new fibroids coming up. The patient became slightly anemic dur ing the . She is markedly obese with 238 pounds and she is only 5 feet 1 inch. The patien t stayed on this weight throughout her without gaining weight. The patient had no complic ations during the of -induced hypertension, only gestational diabetes that has be en controlled with diet. PAST MEDICAL HISTORY: Myomectomy. FAMILY HISTORY: Diabetes, hypertension, heart disease. ALLERGIES: 1. LIDOCAINE. 2. VICKS. PHYSICAL EXAMINATION: VITAL SIGNS: She is 5 feet 1 inch. Her blood pressure is 120/80, pulse is 80, respirations 16. HEAD AND NECK: Normal. CHEST: Clear. HEART: Normal sinus rhythm. LUNGS: Clear. BREASTS: Soft, nontender, no masses. ABDOMEN: Soft, nontender, no masses. Uterus is large with a large fetus. She had normal hea rt tones, no contractions. PELVIC: Normal pelvic exam with closed and long cervix. Presentation very high up in the pelvis, c ephalic presentation. EXTREMITIES: Normal with normal pulses with some edema and normal reflexes. With the diagnoses of term , previous myomectomy and septum lysis, she is undergoing a prim suad section. She has been advised of the possible risks and possible complications of the procedure with her alternatives and options. Written information was provided. She had no more que stions and agreed to go ahead with the procedure with full understanding and no more questions. Dictated By: ROM DUKE/CRISTOFER Conf#: [id number] DID#: [id number]
[~2017-01-30] VITALS: Ht 154.9 cm; Wt 109.9 kg
[~2017-01-30 02:28] MED LIST changes: -ACET500C5 PO
[2017-01-30 02:39] VITALS: BP 110/68; PULSE 102; RESP 18
[2017-01-30] MEDS ORDERED: AZIT500T2 PO (02:47)
[2017-01-30] MEDS ORDERED: LACTATED RINGER'S 1,000 ML IV SCH (03:33)
[2017-01-30] MEDS ORDERED: CEFAZOLIN 2 GM/50 ML (PMX) 50 ML IV SCH ×2 (04:00→09:00)
[2017-01-30] MEDS ORDERED: MISOPROSTOL 200 MCG TAB PR PRN ×2 (04:00→09:00)
[2017-01-30] MEDS ORDERED: METHYLERGONOVINE 0.2 MG INJ IM PRN ×2 (04:00→09:00)
[2017-01-30] MEDS ORDERED: CARBOPROST 250 MCG INJ IM PRN ×2 (04:00→09:00)
[2017-01-30] MEDS ORDERED: OXYTOCIN 30 UNITS/LR 500 ML IV PRN ×2 (04:00→09:00)
[2017-01-30] MEDS ORDERED: OXYTOCIN 30 UNITS/LR 500 ML IV SCH (04:00)
[2017-01-30 04:59] LABS: BASOPHILS % 0.5 % (0.0-2.0); EOSINOPHILS # 0.2 10^3/ul (0.0-0.5); EOSINOPHILS % 1.9 % (0.0-7.0); HEMATOCRIT 34.8 % (37.0-47.0); HEMOGLOBIN 11.9 g/dl (12.0-16.0); LYMPHOCYTES # 2.6 10^3/ul (0.8-2.9); MEAN CORPUSCULAR HEMOGLOBIN 31.7 pg (29.0-33.0); MEAN CORPUSCULAR HGB CONC 34.2 g/dl (32.0-37.0); MEAN CORPUSCULAR VOLUME 92.8 fl (82.0-101.0); MEAN PLATELET VOLUME 11.6 fl (7.4-10.4); MONOCYTE # 0.6 10^3/ul (0.3-0.9); MONOCYTES % 7.6 % (0.0-11.0); NEUTROPHIL # 4.3 10^3/ul (1.6-7.5); NEUTROPHILS % 55.6 % (39.0-77.0); PLATELET COUNT 249 10^3/UL (140-415); RED BLOOD COUNT 3.75 10^6/ul (4.20-5.40); RED CELL DISTRIBUTION WIDTH 14.1 % (11.5-14.5); WHITE BLOOD COUNT 7.7 10^3/ul (4.8-10.8)
[2017-01-30 05:16] LABS: ALBUMIN 3.3 g/dl (3.3-4.9); ALBUMIN/GLOBULIN RATIO 0.91; BILIRUBIN,INDIRECT 0.2 mg/dl (0-1.1); BILIRUBIN,TOTAL 0.2 mg/dl (0.2-1.3); CALCIUM 10.4 mg/dl (8.4-10.2); CREATININE 0.66 mg/dl (0.44-1.00); POTASSIUM 3.8 mmol/L (3.5-5.1); TOTAL PROTEIN 6.9 g/dl (6.1-8.1)
[2017-01-30 05:28] LABS: INR 0.85; PROTIME 11.6 Sec (12.2-14.2); PT RATIO 0.9
[2017-01-30] MEDS ORDERED: OXYTOCIN 30 UNITS/LR 500 ML BAG IV ONE (07:00)
[2017-01-30] MEDS ORDERED: ONDANSETRON 4 MG INJ ONE (08:38)
[2017-01-30] MEDS ORDERED: OXYTOCIN 10 UNIT INJ ONE (08:38)
[2017-01-30] MEDS ORDERED: PHENYLephrine (100 MCG/ML) 5ML SYG ONE ×2 (08:38→09:30)
[2017-01-30] MEDS ORDERED: morphine SULFATE/PF (10 MG/10 ML) INJ ONE (08:38)
[2017-01-30] MEDS: LACTATED RINGER'S 1,000 ML IV SCH ×3 (08:45→20:52)
--- NOTE | 2017-01-30 08:45 | QN ---
Documentation Comment Patient was schedule for a c/s on 02/03/17 due to a previous myomectomy. started in active labor this morning SROM with clear fluid. c/s was schedule emergently on 01/30/17 ROM SEAY MD Jan 30, 2017 08:45
--- NOTE | 2017-01-30 08:53 | SIPON ---
Date/Time of Note Date/Time of Note DATE: 01/30/17 TIME: 08:51 Operative Report Preoperative Diagnosis Term in active labor Previous myomectomy spontaneous rupture of membranes Gestational diabetes A1 Postoperative Diagnosis Same Operation/Procedure Performed Primary low segment transverse section Surgeon see signature line assistant counsel Dr. Duarte Anesthesia: spinal Estimated blood loss: other Transfusion Required none Specimen Placenta Grafts/Implants none Complications none ROM SEAY MD Jan 30, 2017 08:53
[2017-01-30] MEDS ORDERED: NA PHOSPHATE/BIPHOS 133 ML ENEMA PR PRN (09:00)
[2017-01-30] MEDS ORDERED: LANOLIN 7 GM TUBE TOP PRN (09:00)
[2017-01-30] MEDS ORDERED: ONDANSETRON 4 MG INJ IV PRN ×2 (09:00→10:30)
[2017-01-30] MEDS ORDERED: HYDROCODONE/APAP (5/325) TAB PO PRN (09:00)
[2017-01-30] MEDS ORDERED: METHYLERGONOVINE 0.2 MG TAB PO PRN (09:00)
[2017-01-30] MEDS: SENNA/DOCUSATE NA (8.6MG/50MG) TAB PO SCH ×2 (09:00→21:00)
[2017-01-30] MEDS ORDERED: DIPHENHYDRAMINE 50 MG INJ ONE (09:17)
[2017-01-30] MEDS: KETOROLAC 30 MG INJ IV SCH ×3 (10:22→21:00)
[2017-01-30] MEDS: OXYTOCIN 30 UNITS/LR 500 ML IV SCH ×2 (10:28→16:21)
[2017-01-30] MEDS ORDERED: DIPHENHYDRAMINE 50 MG INJ IV PRN (10:30)
[2017-01-30] MEDS ORDERED: morphine 2 MG INJ IV PRN (10:30)
[2017-01-30] MEDS ORDERED: NALOXONE (0.4 MG/ML) INJ IV PRN (10:30)
[2017-01-30] MEDS ORDERED: KETOROLAC 30 MG INJ IV PRN (10:30)
--- NOTE | 2017-01-30 11:41 | OPR ---
DATE OF OPERATION: 01/30/2017 PROCEDURE: Primary low segment transverse section. PREOPERATIVE DIAGNOSES: 1. Term in active labor, previous myomectomy spontaneous rupture of membranes, gestationa l diabetes A1. POSTOPERATIVE DIAGNOSES 1. Term in active labor, previous myomectomy spontaneous rupture of membranes, gestationa l diabetes A1. 2. 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 ANESTHESIOLOGIST: Dr. Danny MD ANESTHESIA: Spinal. PROCEDURE: The patient was given a spinal anesthesia, placed in the supine position. A Espinal jordy ter had been placed in the bladder. The abdomen was prepped and draped and a transverse incision wa s done over the previous old scar and this was done for about 10 cm in length. The abdomen was open ed in layers without difficulties. Abdominal cavity was reached. The lower uterine segment was raegan ntified and an Lonnie retractor was placed and the incision was made in the midline and the incision was increased laterally on either side for about 3 inches. The baby's head was delivered followed by the body. The cord was clamped and cut. The baby was handed over to the NST to the neonatologis t team and the cord blood was obtained. The placenta was removed. The uterus was swabbed out and c losed in layers using #1 Monocryl continuous suture in 2 layers. Hemostasis was good. The uterus w as evaluated to be hypertrophic normal palpate no palpable fibroids were obtained that were felt bot h tubes and ovaries were normal, they sponge counts and instrument counts were correct and hemostasi s was good. The piece of Interceed was left on the incision. The peritoneum was closed with a 2-0 Vicryl suture. The fascia was closed with a 0 PDS looped suture, 2-0 Vicryl for the subcutaneous ti ssue, and 3-0 Monocryl subcuticular to the skin. Steri-Strips and Dermabond were applied. The adrian ent tolerated the procedure well and left the OR awake and stable. Sponge counts, instrument counts , needle counts again were correct. Intravenous antibiotics were given for prophylaxis. Blood loss was approximately 600 mL and the urine was clear at the end of the procedure. Dictated By: ROM DUKE/CRISTOFER Conf#: [id number] [facility]#: [id number]
[2017-01-30 12:40] VITALS: BP 102/57; PULSE 90; RESP 19
[2017-01-30 15:50] VITALS: BP 102/64; PULSE 91; RESP 17
[2017-01-30] MEDS: CEFAZOLIN 2 GM/50 ML (PMX) 50 ML IV SCH (16:36)
[2017-01-30 20:00] VITALS: BP 97/52; PULSE 95; RESP 20
[2017-01-31] MEDS: CEFAZOLIN 2 GM/50 ML (PMX) 50 ML IV SCH ×2 (00:41→08:56)
[2017-01-31] MEDS: KETOROLAC 30 MG INJ IV SCH ×4 (00:48→21:00)
[2017-01-31 05:09] VITALS: BP 120/64; PULSE 72; RESP 20
[2017-01-31 08:00] VITALS: BP 98/58; PULSE 93; RESP 18
[2017-01-31] MEDS: LACTATED RINGER'S 1,000 ML IV SCH (08:45)
[2017-01-31] MEDS: SENNA/DOCUSATE NA (8.6MG/50MG) TAB PO SCH ×2 (08:59→21:11)
--- NOTE | 2017-01-31 09:39 | PN ---
Date/Time of Note Date/Time of Note DATE: 01/31/17 TIME: 09:38 Assessment/Plan Lines/Catheters IV Catheter Type (from Nrsg): Peripheral IV Subjective 24 Hr Interval Summary day 1 post c/s afebrile feels good not up yet encouraged ambulation incision dry healing well CBC WNL Constitutional: BM, ambulates, flatus, improved, no complaints, urine output Feeding: advancing diet Pain Control: well controlled Detailed Summary Eyes: no complaints ENT: no complaints Respiratory: no complaints Cardiovascular: no complaints Gastrointestinal: no complaints Genitourinary: no complaints Musculoskeletal: no complaints Skin: no complaints Neurologic: no complaints Endocrine: no complaints Lymphatic: no complaints Psychological: nl mood/affect, no complaints Immunologic: no complaints Exam/Review of Systems Vital Signs Vitals Vital Signs Date Time Temp Pulse Resp B/P Pulse Ox O2 Delivery O2 Flow Rate FiO2 01/31/17 05:09 97.8 72 20 120/64 Room Air Intake and Output 01/30/17 01/30/17 01/31/17 15:00 23:00 07:00 Intake Total 1150 ml 675 ml Output Total 700 ml 250 ml 1500 ml Balance 450 ml 425 ml -1500 ml Exam Constitutional: alert, oriented, well developed Psych: nl mood/affect, no complaints Head: atraumatic, normocephalic Eyes: EOMI, nl conjunctiva, nl lids, nl sclera ENMT: mucosa pink and moist, nl external ears & nose, nl lips & teeth, nl nasal mucosa & septum Neck: non-tender, supple Respiratory: clear to auscultation, normal air movement Cardiovascular: nl pulses, regular rate and rhythm Gastrointestinal: nl liver, spleen, non-tender, soft Musculoskeletal: nl extremities to inspection, nl gait and stance Extremities: normal pulses 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
[2017-01-31 11:17] LABS: BASOPHILS % 0.4 % (0.0-2.0); EOSINOPHILS # 0.1 10^3/ul (0.0-0.5); EOSINOPHILS % 0.7 % (0.0-7.0); HEMATOCRIT 35.1 % (37.0-47.0); HEMOGLOBIN 11.7 g/dl (12.0-16.0); LYMPHOCYTES # 1.8 10^3/ul (0.8-2.9); LYMPHOCYTES % 16.9 % (15.0-51.0); MEAN CORPUSCULAR HEMOGLOBIN 31.8 pg (29.0-33.0); MEAN CORPUSCULAR HGB CONC 33.3 g/dl (32.0-37.0); MEAN CORPUSCULAR VOLUME 95.4 fl (82.0-101.0); MEAN PLATELET VOLUME 11.3 fl (7.4-10.4); MONOCYTE # 0.4 10^3/ul (0.3-0.9); NEUTROPHIL # 8.4 10^3/ul (1.6-7.5); NEUTROPHILS % 77.6 % (39.0-77.0); PLATELET COUNT 271 10^3/UL (140-415); RED BLOOD COUNT 3.68 10^6/ul (4.20-5.40); RED CELL DISTRIBUTION WIDTH 14.1 % (11.5-14.5); WHITE BLOOD COUNT 10.8 10^3/ul (4.8-10.8)
[2017-01-31] MEDS: HYDROCODONE/APAP (5/325) TAB PO PRN ×2 (15:34→19:38)
[2017-01-31 16:00] VITALS: BP 100/59; PULSE 98; RESP 18
[2017-01-31 19:35] VITALS: BP 106/69; PULSE 100; RESP 19
[2017-02-01] MEDS: IBUPROFEN 800 MG TAB PO SCH ×4 (00:46→21:40)
[2017-02-01 04:05] VITALS: BP 104/59; PULSE 90; RESP 17
[2017-02-01 07:15] VITALS: BP 103/59; PULSE 95; RESP 18
[2017-02-01] MEDS: SENNA/DOCUSATE NA (8.6MG/50MG) TAB PO SCH ×2 (08:17→21:16)
[2017-02-01] MEDS: HYDROCODONE/APAP (5/325) TAB PO PRN (12:52)
[2017-02-01 15:55] VITALS: BP 129/83; PULSE 95; RESP 18
--- NOTE | 2017-02-01 18:37 | PN ---
Date/Time of Note Date/Time of Note DATE: 02/01/17 TIME: 18:35 Assessment/Plan Lines/Catheters IV Catheter Type (from Nrsg): Peripheral IV Subjective 24 Hr Interval Summary day 2 after c/s afebrile passing gases no complaints tolerating diet voiding well Constitutional: BM, ambulates, flatus, improved, no complaints, urine output Feeding: advancing diet Pain Control: well controlled Detailed Summary Eyes: no complaints ENT: no complaints Respiratory: no complaints Cardiovascular: no complaints Gastrointestinal: no complaints Genitourinary: no complaints Musculoskeletal: no complaints Skin: no complaints Neurologic: no complaints Endocrine: no complaints Lymphatic: no complaints Psychological: nl mood/affect, no complaints Immunologic: no complaints Exam/Review of Systems Vital Signs Vitals Vital Signs Date Time Temp Pulse Resp B/P Pulse Ox O2 Delivery O2 Flow Rate FiO2 02/01/17 15:55 98.9 95 18 129/83 Room Air Intake and Output 01/31/17 01/31/17 02/01/17 14:59 22:59 06:59 Intake Total 1480 ml Output Total 1800 ml Balance -320 ml Exam Constitutional: alert, oriented, well developed Psych: nl mood/affect, no complaints Head: atraumatic, normocephalic Eyes: EOMI, nl conjunctiva, nl lids, nl sclera ENMT: mucosa pink and moist, nl external ears & nose, nl lips & teeth, nl nasal mucosa & septum Neck: non-tender, supple Respiratory: clear to auscultation, normal air movement Cardiovascular: nl pulses, regular rate and rhythm Gastrointestinal: nl liver, spleen, non-tender, soft Musculoskeletal: nl extremities to inspection, nl gait and stance Extremities: normal pulses Neurological: OFFICE CLEANER II-XII intact, nl mental status, nl speech, nl strength Skin: nl turgor, rash or lesions Lymph: nl lymph nodes Results Result Diagram: 01/31/17 1035 01/30/17 0420 ROM SEAY MD Feb 01, 2017 18:36
[2017-02-01] MEDS ORDERED: BISACODYL (EC) 5 MG TAB PO ONE (19:00)
[2017-02-01 19:50] VITALS: BP 109/64; PULSE 100; RESP 18
[2017-02-02] MEDS: HYDROCODONE/APAP (5/325) TAB PO PRN ×2 (01:45→13:51)
[2017-02-02 04:05] VITALS: BP 112/64; PULSE 91; RESP 18
[2017-02-02] MEDS: IBUPROFEN 800 MG TAB PO SCH ×2 (05:32→13:51)
[2017-02-02 08:00] VITALS: BP 118/75; PULSE 94; RESP 18
[2017-02-02] MEDS ORDERED: DIPHTH/TET/ACEL PERTUSS (ADULT) 0.5 ML VIAL IM* ONE (09:00)
[2017-02-02] MEDS: SENNA/DOCUSATE NA (8.6MG/50MG) TAB PO SCH (09:10)
--- NOTE | 2017-02-02 12:35 | PD.PPDC ---
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 Instruction Condition Patient Condition: Good Diet Diet: Resume Regular Diet Activity/Restrictions Activity: Normal Activity May Shower Restrictions: No Exercising No Lifting No Driving No Sexual Activity Nothing in the Vagina No [place] No Tampons, douche Wound/Drain Care Instructions Wound/Drain Care Instructions: Wash with soap and water Keep clean and dry Follow-up Follow-up with Physician: 2, Week/Weeks Return to clinic for NUTRITION SPECIALIST Instructions: Fever greater than 101 Chills Worsening abdominal pain Excessive Vaginal Bleeding More than 2 pads per hour Unable to tolerate diet OB Instructions: Breast Tenderness Depression Blurried Vision Headache Surgical Instructions: Incisional Drainage Incisional Redness ROM SEAY MD Feb 02, 2017 12:35
--- NOTE | 2017-02-02 12:42 | DS ---
Date/Time of Note Date/Time of Note DATE: 02/02/17 TIME: 12:38 Obstetrical Discharge Record Final Diagnosis Final Diagnosis: Term delivered Other Final Diagnosis Term Previous myomectomy Morbid obesity Gestational diabetes Primary section Section Section: Primary Complications Gestational Diabetes Augmentation: No Induction: No Condition on Discharge Physical Assessment Voiding: Yes Bowel Movement: Yes Breast: Soft, non-tender, Filling Fundus: Firm Abdomen and Incision: Incision healing well Patient is afebrile with no complaints tolerating diet, voiding well. had bowel movement not bleeding much and ambulatory Calf Tenderness: No Patient Condition: Good ROM SEAY MD Feb 02, 2017 12:42
[2017-02-02] MEDS ORDERED: IBUPROFEN 800 MG TAB PO SCH (14:00)
--- NOTE | 2017-02-02 14:29 | RADRPT ---
PROCEDURE: US Lower extremity Venous. CLINICAL INDICATION: Swelling and pain TECHNIQUE: Multiple sonographic images of the right lower extremity deep venous system was obtaine d utilizing grayscale, color-flow, compressive sonography and doppler imaging with augmentation. Th e images were reviewed on a PACS workstation. COMPARISON: None. FINDINGS: There is normal compressibility and flow within the right common femoral, deep femoral, superficial femoral, posterior tibial, peroneal and popliteal veins. IMPRESSION: 1. No sonographic evidence for deep venous thrombosis within the right lower extremity. RPTAT: AAPP Physician Senia Date Time Electronically viewed and signed by Physician Senia on 02/02/2017 14:28 TAHMINA/
== END 2017-02-02 16:40 | disposition home or self-care (01) | DRG 765 ==
LOC: OBT 02:28 → L-D 02:29 → OBT 03:35 → L-D 03:36 → PP1 12:34
PROVIDERS: ADMIT Obstetrics & Gynecology; ATTEND Obstetrics & Gynecology
PROC: 10D00Z1 Extraction of Products of Conception, Low, Open Approach (ICD-10-PCS; principal; 2017-01-30 08:30)
PROC: 3E0234Z Introduction of Serum, Toxoid and Vaccine into Muscle, Percutaneous Approach (ICD-10-PCS; 2017-02-02)
DX: O24.420 Gestational diabetes mellitus in childbirth, diet controlled (principal); Z68.42 Body mass index [BMI] 45.0-49.9, adult; O34.13 Maternal care for benign tumor of corpus uteri, third trimester; D25.9 Leiomyoma of uterus, unspecified; O99.214 Obesity complicating childbirth; E66.01 Morbid (severe) obesity due to excess calories; Z3A.38 38 weeks gestation of pregnancy; Z37.0 Single live birth; Z23 Encounter for immunization
CPT/HCPCS: 80053; 82962; 85025; 85610; 85730; 86592; 86850; 86900; 86901; 87340; 90715; 93971; 99464; G0463; J0690; J1200; J1885; J2274; J2370; J2405; J2590; J7120

== ENCOUNTER 2018-03-27 01:53 | Emergency (ER) | payer BC, OTHER ==
[~2018-03-27] VITALS: Ht 157.5 cm; Wt 102.7 kg
[~2018-03-27 01:53] MED LIST changes: -ASC500 PO; +AZIT500T2 PO; -FOLI-49 PO; -PYRI50TA80 PO
[2018-03-27 01:57] VITALS: BP 131/69; PULSE 99; RESP 19; Ht 157.5 cm; Wt 102.7 kg
[2018-03-27] MEDS ORDERED: ACETAMINOPHEN 500 MG TAB PO STA (03:01)
--- NOTE | 2018-03-27 03:03 | ERD ---
ER Documentation Chief Complaint Chief Complaint POSS PREG; POSITIVE PREG TEST AT HOME; VAG BLEEDING X4DAYS HPI This is a 32-year-old female who presents here in the emergency department with complaints of vaginal bleeding, severe pelvic pain for 4 days and got worse today. Stated that she found out that she is last Tuesday. LMP: Patient stated that she is not sure of the exact date in November 2017. . Denies headache, head injury, loss of consciousness, dizziness, neck pain, neck stiffness, throat pain, difficulty swallowing, difficulty breathing lying flat, shoulder pain, chest pain, back pain, abdominal pain, nausea, vomiting, constipation, diarrhea, urinary symptoms, loss of bowel and bladder control, trauma, injury, falls, difficulty walking due to pain, numbness or tingling sensation, calf pain, recent travel, recent major surgery in the last 3 weeks, calf pain, recent long travel, recent exposure to any illness, recent antibiotic use in the last 3 months, fever, chills, seizures. Past medical history: Surgical history: x1. Social: Denies smoking, use of alcoholic beverages, use of illegal drugs. ROS All systems reviewed and are negative except as per history of present illness. Medications Home Meds Active Scripts Vit No.124/Iron/FA ( Vitamin Tablet) 1 Each Tablet, 1 EACH PO DAILY, #30 TAB Prov:HEATH FAGAN 03/27/18 Acetaminophen* (Tylophen*) 500 Mg Capsule, 1 CAP PO Q6H PRN for PAIN AND OR ELEVATED TEMP, #20 CAP Prov:HEATH FAGAN 03/27/18 Reported Medications Azithromycin* (Zithromax* Tri-Segrio) 500 Mg Tablet, 500 MG PO DAILY for 3 Days, TA B 01/30/17 Iron,Carbonyl/Vit C/Vit B12/Fa (IRON 100 PLUS TABLET) 1 Each Tablet, 1 EACH PO, TAB 12/26/16 Calcium Carbonate (CALCIUM) 600 Mg Tablet, 600 MG PO, TAB 12/26/16 Vit W-Ca,Fe,FA(<1 mg) ( Vitamins) 1 Each Tablet, 1 EACH PO, TAB 12/26/16 Allergies Allergies: Coded Allergies: dextromethorphan (Verified Allergy, Unknown, 01/30/17) lidocaine (Verified Allergy, Unknown, 01/30/17) PMhx/Soc History of Surgery: Yes (HYSTEROSCOPY 12/2015, MYOMECTOMY 2013 ) Anesthesia Reaction: No Hx Neurological Disorder: No Hx Respiratory Disorders: No Hx Cardiac Disorders: No Hx Psychiatric Problems: No Hx Miscellaneous Medical Probl: No Hx Alcohol Use: No Hx Substance Use: No Hx Tobacco Use: No Physical Exam Vitals Vital Signs Date Temp Pulse Resp B/P (MAP) Pulse Ox O2 O2 Flow FiO2 Time Delivery Rate 03/27/18 98.0 99 19 131/69 97 01:57 (89) Physical Exam Const: No acute distress Head: Atraumatic Eyes: Normal Conjunctiva ENT: Normal External Ears, Nose and Mouth. Neck: Full range of motion. No meningismus. Resp: Clear to auscultation bilaterally Cardio: Regular rate and rhythm, no murmurs Abd: Soft, non tender, non distended. Normal bowel sounds. Mild pelvic tenderness. No CVA tenderness. Skin: No petechiae or rashes Back: No midline or flank tenderness. No CVA tenderness. Ext: No cyanosis, or edema Neur: Awake and alert Psych: Normal Mood and Affect Result Diagram: 03/27/18 0314 03/27/18 0314 Results 24 hrs Laboratory Tests Test 03/27/18 03:14 White Blood Count 12.3 10^3/ul Red Blood Count 4.10 10^6/ul Hemoglobin 12.2 g/dl Hematocrit 37.7 % Mean Corpuscular Volume 92.0 fl Mean Corpuscular Hemoglobin 29.8 pg Mean Corpuscular Hemoglobin Concent 32.4 g/dl Red Cell Distribution Width 12.8 % Platelet Count 343 10^3/UL Mean Platelet Volume 10.4 fl Immature Granulocytes % 0.400 % Neutrophils % 60.2 % Lymphocytes % 31.3 % Monocytes % 4.7 % Eosinophils % 3.0 % Basophils % 0.4 % Nucleated Red Blood Cells % 0.0 /100WBC Immature Granulocytes # 0.050 10^3/ul Neutrophils # 7.4 10^3/ul Lymphocytes # 3.9 10^3/ul Monocytes # 0.6 10^3/ul Eosinophils # 0.4 10^3/ul Basophils # 0.1 10^3/ul Nucleated Red Blood Cells # 0.0 10^3/ul Urine Color YELLOW Urine Clarity SLIGHTLY CLOUDY Urine pH 6.0 Urine Specific [place] 1.024 Urine Ketones NEGATIVE mg/dL Urine Nitrite NEGATIVE mg/dL Urine Bilirubin NEGATIVE mg/dL Urine Urobilinogen NEGATIVE mg/dL Urine Leukocyte Esterase NEGATIVE Mel/ul Urine Microscopic RBC 2 /HPF Urine Microscopic WBC 0 /HPF Urine Squamous Epithelial Cells FEW /HPF Urine Bacteria FEW /HPF Urine Hemoglobin 1+ mg/dL Urine Glucose NEGATIVE mg/dL Urine Total Protein NEGATIVE mg/dl Sodium Level 140 mmol/L Potassium Level 4.1 mmol/L Chloride Level 103 mmol/L Carbon Dioxide Level 26 mmol/L Anion Gap 11 Blood Urea Nitrogen 13 mg/dl Creatinine 0.63 mg/dl Est Glomerular Filtrat Rate mL/min > 60 mL/min Glucose Level 117 mg/dl Calcium Level 10.2 mg/dl Total Bilirubin 0.2 mg/dl Direct Bilirubin 0.00 mg/dl Indirect Bilirubin 0.2 mg/dl Aspartate Amino Transf (AST/SGOT) 18 IU/L Alanine Aminotransferase (ALT/SGPT) 14 IU/L Alkaline Phosphatase 121 IU/L Total Protein 8.5 g/dl Albumin 4.7 g/dl Globulin 3.80 g/dl Albumin/Globulin Ratio 1.23 Amylase Level 85 U/L Lipase 39 U/L Beta HCG, Quantitative 4092.6 mIU/ml Current Medications Medications Dose Sig/Maria Fernanda Start Time Status Last (Trade) Ordered Route PRN Stop Time Admin Dose Reason Admin 500 mg ONCE STAT 03/27/18 DC 03/27/18 Acetaminophen PO 03:01 03:16 (Tylenol 03/27/18 03:04 Tab) Procedures/MDM Diagnostic tests: Urinalysis: Reviewed. Culture urine: Sent. Beta-hCG quantitative: 4092.6 Type and Rh: O Positive. Blood works: Reviewed. OB ultrasound: 1. Intrauterine gestational sac measuring 5 weeks 1 day. Yolk sac and embryo not visualized, viability cannot be confirmed due to early age of the . 2. Trace simple fluid in the posterior cul-de-sac. Normal ovaries. No adnexal lesions. Treatment: Tylenol p.o. Re-evaluation: Denies pain, vaginal bleeding. No signs of hemorrhaging. Differential diagnosis I have low suspicion for ectopic , ruptured ectopic , sepsis, hemorrhage, appendicitis, pyelonephritis. Final diagnosis: Vaginal bleeding in . Prescription: Tylenol. vitamins. Follow-up with OB in the next 24-48 hours for a reevaluation. Come back here in the emergency department for any new symptoms or any worsening symptoms. All questions and concerns were answered. Patient and family members verbalized understanding and agreed with plan of care. Hemodynamically stable on discharge. Departure Diagnosis: Primary Impression: Vaginal bleeding in patient at less than 20 weeks gestation Additional Impressions: Pelvic pain affecting in first trimester, antepartum Miscarriage Threatened Condition: Stable Additional Instructions: Follow-up with OB in the next 24-48 hours for a reevaluation. Come back here in the emergency department for any new symptoms or any worsening symptoms. HEATH FAGAN Mar 27, 2018 03:03
[2018-03-27] MEDS ORDERED: PREN-93 PO (04:47)
[2018-03-27] MEDS ORDERED: ACET500C5 PO (04:47)
== END 2018-03-27 05:05 | disposition home or self-care (01) ==
LOC: FTE 01:53
DX: O20.0 Threatened abortion (principal); O26.891 Other specified pregnancy related conditions, first trimester; R10.2 Pelvic and perineal pain; Z3A.01 Less than 8 weeks gestation of pregnancy
CPT/HCPCS: 76801; 76817; 80053; 81001; 82150; 83690; 84702; 85025; 86900; 86901; 87086; Z7502; Z7610

== ENCOUNTER 2018-08-20 01:00 | Outpatient (CLI) | payer OTHER ==
[~2018-08-20] VITALS: Ht 154.9 cm; Wt 107.5 kg
[~2018-08-20 01:00] MED LIST changes: +ACET500C5 PO; +PREN-93 PO
[2018-08-20 01:37] VITALS: BP 128/61; PULSE 101; RESP 18; Ht 154.9 cm; Wt 107.5 kg
[2018-08-20] MEDS ORDERED: LABE100T7 PO (01:40)
--- NOTE | 2018-08-20 06:13 | PN ---
Triage Information Date/Time August 20, 2018 Reason for visit: Patient here today for back pain and cramping and concerned about possible leaking of fluid as well as scant bleeding. Weeks of Gestation 26 and 6 /Para 3 para 1 Diabetes: none Hypertention: none Additional information 32-year-old G3, P1 with IUP at 26 and 6 with history of previous x1 here today with complaint of back pain and cramping, questionable leaking scans of amniotic fluid and scant amounts of blood. She denies any decreased movement. Reports on and off mild contractions. Denies any urinary symptoms. She reports had history of previa. Perinatologist Dr. Albarado in [place] Objective Vital Signs Date Temp Pulse Resp B/P (MAP) Pulse Ox O2 O2 Flow FiO2 Time Delivery Rate 08/20/18 98.7 101 18 128/61 Room Air 01:37 (83) Heart Rate: 130's Heart Rate Comments Category 1 and appropriate for gestational age Contraction picked up on the monitor Exam Appearance: Alert and oriented x4 does not appear to be in any acute distress Abdomen: Soft, gravid, fundal height consider gestational age NST: Category 1 and appropriate for gestational age No contraction noted on the monitor BPP: 8/8 MVP: 7.7 Cervical length: 4 cm UA: Negative R OM test negative Ultrasound with no evidence of previa or abruption VS - Last 72 Hours, by Label Date Temp Pulse Resp B/P (MAP) Pulse Ox O2 O2 Flow FiO2 Time Delivery Rate 08/20/18 98.7 101 18 128/61 Room Air 01:37 (83) Laboratory Tests Test 08/20/18 01:25 08/20/18 03:20 Urine Color STRAW Urine Clarity CLEAR Urine pH 7.0 Urine Specific [place] 1.008 Urine Ketones NEGATIVE Urine Nitrite NEGATIVE Urine Bilirubin NEGATIVE Urine Urobilinogen NEGATIVE Urine Leukocyte Esterase NEGATIVE Urine Hemoglobin NEGATIVE Urine Glucose NEGATIVE Urine Total Protein NEGATIVE Membranes Rupture NEGATIVE Results/Medications Results 24 hrs Laboratory Tests Test 08/20/18 01:25 08/20/18 03:20 Urine Color STRAW Urine Clarity CLEAR Urine pH 7.0 Urine Specific [place] 1.008 Urine Ketones NEGATIVE Urine Nitrite NEGATIVE Urine Bilirubin NEGATIVE Urine Urobilinogen NEGATIVE Urine Leukocyte Esterase NEGATIVE Urine Hemoglobin NEGATIVE Urine Glucose NEGATIVE Urine Total Protein NEGATIVE Membranes Rupture NEGATIVE Imaging Results PROCEDURE: ULTRASOUND BIOPHYSICAL PROFILE CLINICAL INDICATION: 32-year-old female with abdominal pain for viability. TECHNIQUE: Multiple sonographic images were obtained in order to perform a biophysical profile The images were reviewed on a PACS workstation. COMPARISON: None. FINDINGS: The cervix is closed and measures 4.0 cm in maximal length. There is a single intrauterine gestation. There is a breech head maternal left presentation. The placenta is posterior grade 1. The results of the biophysical profile are as follows: breathing movement = 2/2 Gross body movement = 2/2 tone = 2/2 Qualitative amniotic fluid volume = 2/2 The maximal vertical pocket is 7.7 cm. This yields a biophysical profile score of 8/8. IMPRESSION: Biophysical profile score is 8/8. PROCEDURE: ULTRASOUND OBSTETRICAL CLINICAL INDICATION: 32-year-old female with abdominal pain for size and date determination. TECHNIQUE: Multiple sonographic images of the pelvis were obtained. The images were reviewed on a PACS workstation. COMPARISON: Ultrasound biophysical profile obtained concurrently. FINDINGS: There is a single viable intrauterine gestation. Cardiac activity is present with 154 beats per minute. There is a breech maternal left presentation. Measurements were made in order to determine age. The results are as follows: BPD = 6.21 cm, HC = 22.92 cm, AC = 22.33 cm, FL = 4.70 cm. This yields and estimated gestational age of approximately 25 weeks 5 days. The estimated date of delivery is November 28, 2018. The EFW = 892 +/- 134 g (1 lb 15 oz). The GP is 14%. The placenta is posterior grade 1. There is no evidence for an abruption or placenta previa. IMPRESSION: 1. Single viable intrauterine gestation of approximately 25 weeks 5 days with breech presentation. The estimated date of delivery is November 28, 2018. 2. The estimated weight is 892 +/- 134 g (1 lb 15 oz). The GP is 14%. Disposition: Discharge Assessment/Plan IUP at 26 weeks and 6 days History of previous x1 No evidence of abruption, previa, PPROM or labor No evidence of UTI Scant blood noted in speculum examination. No bleeding noted during monitoring in triage. No evidence of previa and ultrasound R OM test negative testing appropriate for gestational age Normal amniotic fluid Patient discharged home in stable condition Recommended bedrest and pelvic rest and follow-up as a scheduled in about 1 to 2 weeks with her perinatologist Strict labor precautions and kick count discussed with patient Follow-up with primary OB office in 2 to 3 days after discharge from the hospital recommended Patient verbalized understanding. All questions were answered to patient with satisfaction THAO YOUNGBLOOD MD Aug 20, 2018 06:13
--- NOTE | 2018-08-20 07:45 | TRIAGE ---
OB Triage Datetime Report Generated by CPN: 08/20/2018 07:45 Datetime: 08/20/2018 06:39 Vaginal Exam Membrane Status: Intact Datetime: 08/20/2018 06:05 Stage of : OB Triage Labor Evaluation Frequency: X0 Monitor Mode: External Duration (sec)2399: X0 Pattern: Normal: <= 5 Contractions in 10 Minutes Resting Tone Pastos: Relaxed Datetime: 08/20/2018 05:54 Time of Arrival: 08/20/2018 00:50 EGA: 26.6 Arrived By: Wheelchair Arrived From: Home Chief Complaint: BACK PAIN, CRAMPING, LEAKING FLUIDS Movement: Present Contractions: Denies/Absent Rupture of Membranes: Unsure Vaginal Bleeding: None Vaginal Discharge: Denies Recent Sexual Intercouse: Denies Abdominal Trauma: Not Applicable Patient Complaints: Contractions; Cramping Time Provider Notified: 08/20/2018 02:53 Provider Notified: DR. YOUNGBLOOD Initial Plan: EFM, CALL OB Datetime: 08/20/2018 05:30 Stage of : OB Triage Labor Evaluation Frequency: X0 Monitor Mode: External Duration (sec)2399: X0 Pattern: Normal: <= 5 Contractions in 10 Minutes Resting Tone Pastos: Relaxed Datetime: 08/20/2018 04:30 Stage of : OB Triage Labor Evaluation Frequency: X0 Monitor Mode: External Duration (sec)2399: X0 Pattern: Normal: <= 5 Contractions in 10 Minutes Resting Tone Pastos: Relaxed Datetime: 08/20/2018 03:29 Comments: OFF. NEW ORDERS RECEIVED. Datetime: 08/20/2018 03:16 Stage of : OB Triage Labor Evaluation Frequency: X0 Monitor Mode: External Duration (sec)2399: X0 Pattern: Normal: <= 5 Contractions in 10 Minutes Resting Tone Pastos: Relaxed Heart Rate FHR Baseline Rate: 145 Monitor Mode: External US Variability: Moderate 6-25 bpm Accelerations: 10X10 Decelerations: None Category: Category I Datetime: 08/20/2018 02:00 Stage of : OB Triage Labor Evaluation Frequency: X0 Monitor Mode: External Duration (sec)2399: X0 Pattern: Normal: <= 5 Contractions in 10 Minutes Resting Tone Pastos: Relaxed Heart Rate FHR Baseline Rate: 145 Monitor Mode: External US Variability: Moderate 6-25 bpm Accelerations: 15X15 Decelerations: None Category: Category I Comments: APPROPRIATE FOR GESTATIONAL AGE Datetime: 08/20/2018 01:00 Stage of : OB Triage Maternal Assessment Level of Consciousness: Keenly Alert, Responsive DTR's/Clonus: DTRs 2+; No Clonus Headache: Denies Blurred Vision: No Respiratory Effort: Unlabored; Regular Rhythm; Equal Expansion Breath Sounds, Left: Clear and Equal Breath Sounds, Right: Clear and Equal Nausea/Vomiting: Denies RUQ Epigastric Pain: Denies Lower Extremities Edema: Bilateral Lower Extremities Degree: 1+ Upper Extremities Edema: None Degree: None Facial Edema: None Temperature Route: Oral Fall Risk Assessment History of Falling: (0) No Secondary Diagnosis: (0) No Ambulatory Aid: (0) Bedrest/Nurse Assist IV Therapy: (0) No Gait: (0) Normal/Bedrest/Immobile Mental Status: (0) Oriented to Own Ability Fall Score: 0 Fall Risk Score Definition: No Risk: No action required Pain Assessment Pain Scale: 10 Pain Presence: Constant Pain Type: Cramping; Ache Pain Location: Back; Abdomen
== END 2018-08-20 06:30 | disposition home or self-care (01) ==
LOC: L-D 01:00 → OBT 01:00
PROVIDERS: ATTEND Obstetrics & Gynecology
DX: O26.892 Other specified pregnancy related conditions, second trimester (principal); M54.9 Dorsalgia, unspecified; R25.2 Cramp and spasm; O34.219 Maternal care for unspecified type scar from previous cesarean delivery; Z3A.26 26 weeks gestation of pregnancy
CPT/HCPCS: 76815; 76817; 76818; 81003; 84112; Z7500; G0463

== ENCOUNTER 2018-10-26 06:25 | Outpatient (CLI) | payer OTHER ==
[~2018-10-26] VITALS: Ht 154.9 cm; Wt 108.6 kg
[~2018-10-26 06:25] MED LIST changes: -ACET500C5 PO; -AZIT500T2 PO; +LABE100T7 PO; -PREN-93 PO
[2018-10-26 07:57] VITALS: BP 108/56; PULSE 100; RESP 18; Ht 154.9 cm; Wt 108.6 kg
== END 2018-10-26 11:14 | disposition home or self-care (01) ==
LOC: L-D 06:25 → OBT 06:25 → 2NE 06:25 → OBT 11:14
PROVIDERS: ATTEND Obstetrics & Gynecology
DX: O10.913 Unspecified pre-existing hypertension complicating pregnancy, third trimester (principal); Z3A.35 35 weeks gestation of pregnancy
CPT/HCPCS: 76818; 80053; 80076; 82575; 84156; 84560; 85025; 85384; 85610; 85730; Z7500; G0463

== ENCOUNTER 2018-11-05 07:56 | Outpatient (CLI) | payer OTHER ==
[~2018-11-05] VITALS: Ht 154.9 cm; Wt 108.9 kg
[2018-11-05 10:34] VITALS: Ht 154.9 cm; Wt 108.9 kg
[2018-11-05 10:35] VITALS: BP 99/61; PULSE 99; RESP 18
== END 2018-11-05 10:40 | disposition home or self-care (01) ==
LOC: L-D 07:56 → OBT 07:56
PROVIDERS: ATTEND Obstetrics & Gynecology
DX: O12.13 Gestational proteinuria, third trimester (principal); Z3A.37 37 weeks gestation of pregnancy
CPT/HCPCS: 76818; 82565; 82575; 84156; Z7500; G0463

== ENCOUNTER 2018-11-08 04:13 | Inpatient (IN) | payer OTHER ==
[~2018-11-08] VITALS: Ht 154.9 cm; Wt 108.0 kg
[2018-11-08 05:08] VITALS: Ht 154.9 cm; Wt 108.0 kg
[2018-11-08 05:12] VITALS: BP 117/65; PULSE 107; RESP 16
[2018-11-08] MEDS ORDERED: METHYLERGONOVINE 0.2 MG INJ IM PRN ×2 (05:30→08:30)
[2018-11-08] MEDS ORDERED: CARBOPROST 250 MCG INJ IM PRN ×2 (05:30→08:30)
[2018-11-08] MEDS ORDERED: OXYTOCIN 30 UNITS/LR 500 ML IV PRN ×2 (05:30→08:30)
[2018-11-08] MEDS ORDERED: MISOPROSTOL 200 MCG TAB PR PRN ×2 (05:30→08:30)
[2018-11-08] MEDS: LACTATED RINGER'S 1,000 ML IV SCH ×2 (06:07→06:08)
[2018-11-08] MEDS ORDERED: morphine SULFATE/PF (10 MG/10 ML) INJ ONE (06:28)
[2018-11-08] MEDS ORDERED: ONDANSETRON 4 MG INJ ONE (06:28)
[2018-11-08] MEDS ORDERED: OXYTOCIN 10 UNIT INJ ONE (06:28)
[2018-11-08] MEDS ORDERED: BUPIVACAINE 0.5% (SDV) 30 ML INJ ONE (06:31)
[2018-11-08] MEDS ORDERED: PHENYLephrine 10 MG INJ ONE (06:57)
[2018-11-08] MEDS ORDERED: KETOROLAC 30 MG INJ IV PRN ×3 (07:30→11:30)
[2018-11-08] MEDS ORDERED: ONDANSETRON 4 MG INJ IV PRN ×3 (07:30→11:30)
[2018-11-08] MEDS ORDERED: NALOXONE (0.4 MG/ML) INJ IV PRN ×2 (07:30→11:30)
[2018-11-08] MEDS ORDERED: morphine 2 MG INJ IV PRN (07:30)
[2018-11-08] MEDS ORDERED: DIPHENHYDRAMINE 50 MG INJ IV PRN ×3 (07:30→11:30)
[2018-11-08] MEDS ORDERED: OXYTOCIN 30 UNITS/LR 500 ML IV ONE (07:36)
[2018-11-08] MEDS ORDERED: OXYTOCIN 30 UNITS/LR 500 ML IV SCH (08:19)
[2018-11-08] MEDS ORDERED: LACTATED RINGER'S 1,000 ML IV SCH (08:19)
[2018-11-08] MEDS ORDERED: DIPHENHYDRAMINE 50 MG INJ ONE (08:25)
[2018-11-08] MEDS ORDERED: LANOLIN HPA 1 PKT TOP PRN (08:30)
[2018-11-08] MEDS ORDERED: HYDROCODONE/APAP (5/325) TAB PO PRN (08:30)
[2018-11-08] MEDS ORDERED: DIPHENHYDRAMINE 50 MG INJ IV ONE (08:30)
[2018-11-08] MEDS ORDERED: NA PHOSPHATE/BIPHOS 133 ML ENEMA PR PRN (08:30)
[2018-11-08] MEDS ORDERED: CEFAZOLIN 2 GM/50 ML (PMX) 50 ML IVPB SCH (08:30)
[2018-11-08] MEDS ORDERED: METHYLERGONOVINE 0.2 MG TAB PO PRN (08:30)
[2018-11-08] MEDS: OXYTOCIN 30 UNITS/LR 500 ML IV SCH ×2 (09:05→14:32)
[2018-11-08] MEDS: KETOROLAC 30 MG INJ IV SCH ×3 (09:34→20:38)
[2018-11-08 10:40] VITALS: BP 100/57; PULSE 83; RESP 18
[2018-11-08 11:10] VITALS: BP 102/57; PULSE 88; RESP 19
[2018-11-08] MEDS ORDERED: ALBUTEROL 0.083% (NEB) 2.5 MG/3 ML AMP HHN PRN (11:30)
[2018-11-08] MEDS ORDERED: HYDROmorphONE 1 MG/5 ML IV SYRINGE IV PRN ×2 (11:30)
[2018-11-08] MEDS ORDERED: METOCLOPRAMIDE 10 MG INJ IV PRN (11:30)
[2018-11-08] MEDS ORDERED: FENTAnyl 50 MCG/ML VIAL IV PRN ×2 (11:30)
[2018-11-08] MEDS ORDERED: HYDROmorphONE 0.5 MG/0.5 ML SYG IV PRN ×2 (11:30)
[2018-11-08] MEDS: LABETALOL 100 MG TAB PO SCH ×2 (11:39→21:00)
[2018-11-08] MEDS: SENNA/DOCUSATE NA (8.6MG/50MG) TAB PO SCH ×2 (11:40→20:46)
[2018-11-08 12:52] VITALS: BP 98/55; PULSE 83; RESP 19
[2018-11-08] MEDS: CEFAZOLIN 2 GM/50 ML (PMX) 50 ML IVPB SCH ×4 (14:16→22:33)
[2018-11-08 15:58] VITALS: BP 93/46; PULSE 76; RESP 16
[2018-11-09] VITALS: BP 95/51; PULSE 92; RESP 18
[2018-11-09] MEDS: LACTATED RINGER'S 1,000 ML IV SCH ×2 (04:20→05:01)
[2018-11-09] MEDS: KETOROLAC 30 MG INJ IV SCH (04:28)
[2018-11-09 04:40] VITALS: BP 98/54; PULSE 96; RESP 18
[2018-11-09] MEDS: CEFAZOLIN 2 GM/50 ML (PMX) 50 ML IVPB SCH (06:26)
[2018-11-09 08:30] VITALS: BP 100/58; PULSE 88; RESP 17
[2018-11-09] MEDS: LABETALOL 100 MG TAB PO SCH ×2 (09:00→21:00)
[2018-11-09] MEDS: SENNA/DOCUSATE NA (8.6MG/50MG) TAB PO SCH ×2 (09:29→21:00)
[2018-11-09] MEDS: HYDROCODONE/APAP (5/325) TAB PO PRN ×2 (13:29→18:57)
[2018-11-09 16:09] VITALS: BP 123/60; PULSE 99; RESP 18
[2018-11-09 18:04] VITALS: BP 103/65
[2018-11-09 19:30] VITALS: BP 124/77; PULSE 69; RESP 19
[2018-11-09] MEDS: IBUPROFEN 800 MG TAB PO SCH (22:19)
[2018-11-10 04:00] VITALS: BP 99/64; PULSE 98; RESP 2
[2018-11-10] MEDS: IBUPROFEN 800 MG TAB PO SCH ×3 (05:45→22:01)
[2018-11-10 08:30] VITALS: BP 116/60; PULSE 89; RESP 14
[2018-11-10] MEDS: SENNA/DOCUSATE NA (8.6MG/50MG) TAB PO SCH ×2 (09:41→21:07)
[2018-11-10 16:10] VITALS: BP 108/53; PULSE 100; RESP 18
[2018-11-10] MEDS: HYDROCODONE/APAP (5/325) TAB PO PRN (17:44)
[2018-11-10] MEDS: LABETALOL 100 MG TAB PO SCH (21:00)
[2018-11-11 04:00] VITALS: BP 112/61; PULSE 80; RESP 19
[2018-11-11] MEDS: IBUPROFEN 800 MG TAB PO SCH ×2 (05:23→14:39)
[2018-11-11 08:00] VITALS: BP 116/75; PULSE 80; RESP 18
[2018-11-11] MEDS: SENNA/DOCUSATE NA (8.6MG/50MG) TAB PO SCH (08:31)
[2018-11-11] MEDS ORDERED: DIPHTH/TET/ACEL PERTUSS (ADULT) 0.5 ML VIAL IM* ONE (09:00)
[2018-11-11] MEDS ORDERED: MEASLES,MUMPS,RUBELLA VACCINE INJ SC* ONE (09:00)
[2018-11-11] MEDS: LABETALOL 100 MG TAB PO SCH (09:00)
[2018-11-11] MEDS: HYDROCODONE/APAP (5/325) TAB PO PRN (12:35)
[2018-11-11 16:18] VITALS: BP 110/62; PULSE 89; RESP 18
== END 2018-11-11 18:00 | disposition home or self-care (01) | DRG 784 ==
LOC: L-D 04:13 → PP1 10:32
PROVIDERS: ADMIT Obstetrics & Gynecology; ATTEND Obstetrics & Gynecology
PROC: 0UB70ZZ Excision of Bilateral Fallopian Tubes, Open Approach (ICD-10-PCS; 2018-11-08)
PROC: 10D00Z1 Extraction of Products of Conception, Low, Open Approach (ICD-10-PCS; principal; 2018-11-08 06:00)
DX: O13.3 Gestational [pregnancy-induced] hypertension without significant proteinuria, third trimester (principal); Z68.42 Body mass index [BMI] 45.0-49.9, adult; O99.213 Obesity complicating pregnancy, third trimester; E66.8 Other obesity; Z3A.37 37 weeks gestation of pregnancy; Z37.0 Single live birth; O34.211 Maternal care for low transverse scar from previous cesarean delivery; Z30.2 Encounter for sterilization
CPT/HCPCS: 85025; 85610; 85730; 86592; 86850; 86900; 86901; 88302; 90715; 99464; J0690; J1200; J1885; J2274; J2370; J2405; J2590; J7120